=== PATIENT | male | born 1960 | race Two or more races ===

== ENCOUNTER 2020-12-26 07:29 | Outpatient (REF) | payer OTHER, SELFPAY ==
[2020-12-26 08:35] LABS: MANUAL DIFF FLAG NO
[2020-12-26 08:40] LABS: Glucose Urine UA NEG (NEG); Leukocyte Esterase Urine NEG (NEG); Nitrite Urine NEG (NEG); PH 7.5 (5.0-8.0); Urine Blood NEG (NEG); Urine Ketones NEG (NEG); Urine Protein NEG (NEG-TRACE)
[2020-12-26 08:45] LABS: Basophils Percent Auto 0.4 % (0-2); Eosinophils Absolute Auto 0.1 X10*3/uL (0.0-0.4); Eosinophils Percent Auto 1.6 % (0-4); Hematocrit 43.3 % (42-52); Hemoglobin 14.1 g/dl (14.0-18.0); Imm Gran Abs Auto 0.02 X10*3/uL (0.00-0.03); Imm Gran Pct Auto 0.4 % (0.0-0.4); Lymphocytes Absolute Auto 1.1 X10*3/uL (1.2-4.9); Lymphocytes Percent Auto 19.6 % (20-40); Mean Corpuscular HGB Conc 32.6 g/dl (31.0-36.0); Mean Corpuscular Hemoglobin 27.3 pg (27.0-33.0); Mean Corpuscular Volume 83.8 fL (80-98); Mean Platelet Volume 10.8 fL (9.4-12.4); Monocytes Absolute Auto 0.5 X10*3/uL (0.1-1.2); Monocytes Percent Auto 9.6 % (2-11); Neutrophils Absolute Auto 3.8 X10*3/uL (2.0-8.3); Neutrophils Percent Auto 68.4 % (45-73); Platelet Count 258 X10*3/uL (160-400); Red Blood Count 5.17 X10*6/uL (4.60-5.80); Red Cell Distribution Width 14.6 % (11.0-16.0); White Blood Count 5.6 X10*3/uL (4.8-10.8)
[2020-12-26 08:55] LABS: Appearance Urine CLOUDY; Color Urine YELLOW
[2020-12-26 09:14] LABS: Alanine Aminotransferase 23 U/L (0-40); Albumin Level 4.3 g/dL (3.5-5.0); Alkaline Phosphatase 51 U/L (39-117); Anion Gap 12 (12-20); Aspartate Amino Transferase 20 U/L (5-37); Bilirubin Total 0.8 mg/dL (0.0-1.0); Blood Urea Nitrogen 15 mg/dL (9-16); Calcium 8.7 mg/dL (8.4-10.2); Carbon Dioxide 26 mmol/L (22-29); Chloride 105 mmol/L (96-108); Cholesterol 288 mg/dL; Estimated Glomerular Filt Rate > 60; Glucose Random 88 mg/dL (60-115); HDL Cholesterol 76 mg/dL; LDL Cholesterol Calculated 201 mg/dl; Potassium 4.1 mmol/L (3.3-5.1); Sodium 139 mmol/L (135-145); Total Protein 7.7 g/dL (6.5-8.0); Triglycerides 55 mg/dL
[2020-12-26 09:22] LABS: Amorphous Sediment Urine 3+ /LPF; RBC Urine 0 /HPF (0); WBC Urine 0 /HPF (0-4)
[2020-12-26 09:36] LABS: Free T4 (Free Thyroxine) 0.85 ng/dL (0.71-1.85); Prostate Specific Antigen Scr 1.45 ng/mL (<0.05-4.0)
[2020-12-28 09:37] LABS: Folate 18.1 ng/mL (> or = 4.0); Vitamin B12 470 pg/mL (200-900)
[2020-12-30 03:27] LABS: Beta-2 Glycoprotein IgA <9 SAU (<=20); Beta-2 Glycoprotein IgG <9 SGU (<=20); Beta-2 Glycoprotein IgM <9 SMU (<=20)
[2020-12-31 08:27] LABS: Amitriptyline, Urine NEGATIVE ng/mL (<100); Nortriptyline, Urine NEGATIVE ng/mL (<100)
[2020-12-31 14:21] LABS: Hydroindolacetic Acid,5- 4.1
== END 2020-12-26 07:30 | disposition home or self-care (01) ==
LOC: HO.LAB 07:29
PROVIDERS: PCP Internal Medicine; Visit Provider Internal Medicine
DX: I10 Essential (primary) hypertension (principal); E78.00 Pure hypercholesterolemia, unspecified; R35.0 Frequency of micturition
CPT/HCPCS: 36415; 80053; 80061; 80335; 81001; 81050; 82607; 82746; 83497; 84153; 84439; 84443; 85025; 86146

== ENCOUNTER → 2020-12-31 14:08 | Outpatient (BNVA) | payer OTHER, SELFPAY | PROVIDERS: PCP Internal Medicine; Visit Provider Surgery ==

== ENCOUNTER 2021-01-03 08:00 | Outpatient (REF) | payer OTHER, SELFPAY ==
[2021-01-10 11:21] LABS: Hydroindolacetic Acid,5- 7.7 mg/24 h (<=6.0); Total Volume 1975 mL
== END 2021-01-03 08:01 | disposition home or self-care (01) ==
LOC: HO.LNP 08:00
PROVIDERS: Visit Provider Internal Medicine
DX: Z00.00 Encounter for general adult medical examination without abnormal findings (principal); E78.5 Hyperlipidemia, unspecified; I10 Essential (primary) hypertension; R35.0 Frequency of micturition
CPT/HCPCS: 81050; 83497

== ENCOUNTER 2021-03-25 14:33 | Outpatient (REF) | payer OTHER, SELFPAY ==
--- NOTE | ~2021-03-25 | XR_ITS ---
EXAMINATION: XR HIP, RIGHT CLINICAL INFORMATION: Pain COMPARISON: None TECHNIQUE: Two views of the right hip. FINDINGS: Bone alignment is normal. No fracture or dislocation is seen. The joint space is normal. There is faint soft tissue calcification adjacent to the greater trochanter. XR/XR hip RT min 2V IMPRESSION: Soft tissue calcification adjacent to the right greater trochanter otherwise unremarkable exam.
== END 2021-03-25 14:34 | disposition home or self-care (01) ==
LOC: HO.XRAY 14:33
PROVIDERS: PCP Internal Medicine; Visit Provider Internal Medicine
DX: M25.551 Pain in right hip (principal)
CPT/HCPCS: 73502

== ENCOUNTER 2021-03-26 07:38 | Day surgery (SDC) | payer OTHER, SELFPAY ==
[2021-03-19 14:10] VITALS: BMI 26.6
--- NOTE | 2021-03-24 11:52 | P.CONAN_ITS ---
Documented by User: Tyra Solis 03/24/21 11:53 HPI - Anesthesia Eval Consult details Narrative: 60yo M for Colonoscopy PMFSH Active Problems Active Problems: All Active Problems (Updated 03/19/21 @ 14:13 by Sarah Quinones) Frequency of micturition (Acute) Hip pain, right (Acute) Hyperlipidemia (Acute) Hypertension (Acute) Past Medical History Medical History COVID-19 vaccine series completed Hyperlipidemia Hypertension Surgical History Surgical History History of shoulder surgery Hx of colonoscopy Social History Social History Are you a primary career and technology education teacher to a significant other at home: No Do you presently have visiting nurse or other home services: No Alcohol intake: never Second Hand Smoke Exposure: No Use of substances other than those prescribed or required for medical reasons: No Have you been hit, kicked, punched, or otherwise hurt by someone within the past year? If so, by whom?: No Are you DNR?: No Advance Directives: No Advance Directives Information Provided: No Advance Directives on File: No Recently lost weight without trying: No Eating poorly because of decreased appetite: No Nutrition Risks: No Nutritional Risk Meds Allergies Allergy/AdvReac Type Severity Reaction Status Date / Time No Known Allergies Allergy Verified 03/26/21 08:04 Home Medications Medication Instructions Recorded Confirmed Last Taken Type amlodipine 1 tab PO DAILY 03/19/21 03/19/21 Unknown History Exam Exam Date and Time: March 24, 2021 1152 Height,Weight and Vital Signs: Height 5 ft 2 in Weight 66.224 kg Assessment and Plan Assessment Anesthesia Assessment: Chart Reviewed Documented by User: Tae Masterson 03/26/21 08:15 PMFSH Past Medical History Medical History COVID-19 vaccine series completed Hyperlipidemia Hypertension Surgical History Surgical History History of shoulder surgery Hx of colonoscopy Social History Social History Are you a primary career and technology education teacher to a significant other at home: No Do you presently have visiting nurse or other home services: No Alcohol intake: never Second Hand Smoke Exposure: No Use of substances other than those prescribed or required for medical reasons: No Have you been hit, kicked, punched, or otherwise hurt by someone within the past year? If so, by whom?: No Are you DNR?: No Advance Directives: No Advance Directives Information Provided: No Advance Directives on File: No Recently lost weight without trying: No Eating poorly because of decreased appetite: No Nutrition Risks: No Nutritional Risk Meds Allergies Allergy/AdvReac Type Severity Reaction Status Date / Time No Known Allergies Allergy Verified 03/26/21 08:04 Home Medications Medication Instructions Recorded Confirmed Last Taken Type amlodipine 1 tab PO DAILY 03/19/21 03/19/21 Unknown History Exam Airway Mallampati Class: III TM Dist: >3cm Neck ROM: Full
[2021-03-26 08:05] VITALS: BP 148/79; PULSE 58; RESP 16; TEMP 36.4; O2SAT 99
--- NOTE | 2021-03-26 08:24 | MHC.SHP ---
Pre-Procedural Eval Section B Chief Complaint: Screening Details of Present Illness: for screening colonoscopy, asymptomatic Relevant Family History (Specify if Yes): No Relevant Social History: None Present Medications: see Short Stay Collaborative assessment Medical History: Significant History (HTN, hip pain, hyperlipidemia) History of Previous Operations: No relevant previous surgery Allergies: Allergies Allergy/AdvReac Type Severity Reaction Status Date / Time No Known Allergies Allergy Verified 03/26/21 08:04 Review of Systems Sugical H&P ROS: Negative: Constitution, Cardiovascular, Respiratory, Neurological, Psychiatric, Hem-Onc, Allergic/Immunologic, Gastrointestinal, Genitourinary, Musculoskeletal, Integumentary, Endocrine and Eyes/Ears/Nose/Throat Exam Surgical H&P Exam: Normal: HEENT, Normal: Heart, Normal: Lungs, Normal: Extremities, Normal: Abdomen, Normal: Skin and Normal: Neurological Plan Diagnosis/Plan: Unchanged I have reviewed the history and physical and performed a pertinent physical examination on my patient. No changes have occurred unless specified.
[2021-03-26] MEDS: Lactated Ringers 1,000 ML 100 ML IVCONT (08:25)
[2021-03-26 09:10] VITALS: BP 101/61; PULSE 57; RESP 16; TEMP 36.2; O2SAT 95
--- NOTE | 2021-03-26 09:10 | P.OP_ITS ---
Operative Note Operative Note Date of Service: 03/26/21 Narrative: Preop diagnosis: Colon cancer screening Postop diagnosis: 1. Small polyp, about 5 mm, at level 10 cm 2.Internal and external hemorrhoids Procedure: Colonoscopy with polypectomy using hot snare Surgeon: Vernon Flowers MD The patient is a 60-year-old male referred for screening colonoscopy. He understood the technique of the procedure. He was aware of the risks, benefits, and alternatives. Was brought to the operating room and placed in left lateral decubitus position under monitored anesthesia care. A full digital rectal was done. A surgical time-out had been done. There were no palpable anal lesions. The tip of the Olympus colonoscope was gently inserted through the anal orifice and advanced with insufflation all way to cecum. The cecum was intubated. The cecum was cece ntified by visualization of the ileocecal valve as well as the appendiceal orifice. The cecal mucosa was unremarkable. The scope was gradually withdrawn with careful examination of the entire colonic mucosa being done with scope withdrawal. The patient had good bowel prep so it was unlikely that any lesion may have been missed. The rectum was reached. There was note of a small polyp, about 5 mm in size at level 10 cm. This was removed using hot snare. The rest of the rectum was unremarkable. There was note of internal and external hemorrhoids, prominent. There were no other lesions seen in the anal shelf. The scope was then withdrawn completely with desufflation. The patient tolerated the procedure well. No complications were noted. Depending on the path report, I would recommend that his next colonoscopy may be in the next 10 years.
--- NOTE | 2021-03-26 09:14 | PM.OP ---
Brief Operative Note Date of Service: 03/26/21 Pre-op diagnosis: Colon cancer screen Post-op diagnosis: other (Small polyp in the rectum, hemorrhoids) Procedure: Colonoscopy and polypectomy with hot snare Surgeon: Vernon Flowers MD Anesthesia: GLMA Was an Bookkeeping Service Sales Agent used for this Procedure?: No Estimated blood loss (mL): 0 Pathology: other (Polyp) Condition: stable Disposition: PACU
[2021-03-26 09:25] VITALS: PULSE 60; RESP 16; TEMP 36.2; O2SAT 98
== END 2021-03-26 10:14 ==
LOC: HO.SSS 07:38
PROVIDERS: PCP Internal Medicine; Visit Provider Surgery
PROC: 0DJD8ZZ Inspection of Lower Intestinal Tract, Via Natural or Artificial Opening Endoscopic (ICD-10-PCS; CPT 45378; principal; 2021-03-26 09:00)
DX: Z12.11 Encounter for screening for malignant neoplasm of colon (principal); D12.8 Benign neoplasm of rectum; K64.8 Other hemorrhoids; K64.4 Residual hemorrhoidal skin tags; E78.5 Hyperlipidemia, unspecified; I10 Essential (primary) hypertension; Z79.899 Other long term (current) drug therapy
CPT/HCPCS: 45385; 88305

== ENCOUNTER 2021-04-06 07:14 | Outpatient (REF) | payer OTHER, SELFPAY ==
[2021-04-06 08:49] LABS: Alanine Aminotransferase 15 U/L (0-40); Alkaline Phosphatase 57 U/L (39-117); Anion Gap 10 (12-20); Aspartate Amino Transferase 18 U/L (5-37); Bilirubin Total 0.7 mg/dL (0.0-1.0); Blood Urea Nitrogen 10 mg/dL (9-16); Calcium 8.8 mg/dL (8.4-10.2); Carbon Dioxide 27 mmol/L (22-29); Chloride 104 mmol/L (96-108); Cholesterol 260 mg/dL; Estimated Glomerular Filt Rate > 60; Glucose Random 94 mg/dL (60-115); HDL Cholesterol 66 mg/dL; LDL Cholesterol Calculated 157 mg/dl; Potassium 3.9 mmol/L (3.3-5.1); Sodium 137 mmol/L (135-145); Total Protein 7.3 g/dL (6.5-8.0); Triglycerides 189 mg/dL
== END 2021-04-06 07:15 | disposition home or self-care (01) ==
LOC: HO.LAB 07:14
PROVIDERS: PCP Internal Medicine; Visit Provider Internal Medicine
DX: E78.00 Pure hypercholesterolemia, unspecified (principal)
CPT/HCPCS: 36415; 80053; 80061

== ENCOUNTER → 2021-04-08 14:29 | Outpatient (BNVA) | payer OTHER, SELFPAY | PROVIDERS: PCP Internal Medicine; Referring Provider Internal Medicine; Visit Provider Surgery ==

== ENCOUNTER 2021-08-09 07:47 | Outpatient (REF) | payer OTHER, SELFPAY ==
[2021-08-09 08:13] LABS: MANUAL DIFF FLAG NO
[2021-08-09 08:17] LABS: Basophils Percent Auto 0.3 % (0-2); Eosinophils Absolute Auto 0.1 X10*3/uL (0.0-0.4); Eosinophils Percent Auto 2.2 % (0-4); Hematocrit 41.7 % (42-52); Hemoglobin 13.8 g/dl (14.0-18.0); Imm Gran Abs Auto 0.01 X10*3/uL (0.00-0.03); Imm Gran Pct Auto 0.2 % (0.0-0.4); Lymphocytes Absolute Auto 1.2 X10*3/uL (1.2-4.9); Lymphocytes Percent Auto 18.6 % (20-40); Mean Corpuscular HGB Conc 33.1 g/dl (31.0-36.0); Mean Corpuscular Hemoglobin 27.8 pg (27.0-33.0); Mean Corpuscular Volume 84.1 fL (80-98); Mean Platelet Volume 9.9 fL (9.4-12.4); Monocytes Absolute Auto 0.7 X10*3/uL (0.1-1.2); Monocytes Percent Auto 10.7 % (2-11); Neutrophils Absolute Auto 4.3 X10*3/uL (2.0-8.3); Platelet Count 229 X10*3/uL (160-400); Red Blood Count 4.96 X10*6/uL (4.60-5.80); Red Cell Distribution Width 13.4 % (11.0-16.0); White Blood Count 6.4 X10*3/uL (4.8-10.8)
[2021-08-09 08:46] LABS: Alanine Aminotransferase 19 U/L (0-40); Albumin Level 3.9 g/dL (3.5-5.0); Alkaline Phosphatase 58 U/L (39-117); Anion Gap 9 (12-20); Aspartate Amino Transferase 17 U/L (5-37); Bilirubin Total 0.7 mg/dL (0.0-1.0); Blood Urea Nitrogen 12 mg/dL (9-16); Calcium 8.6 mg/dL (8.4-10.2); Carbon Dioxide 29 mmol/L (22-29); Chloride 106 mmol/L (96-108); Cholesterol 197 mg/dL; Estimated Glomerular Filt Rate > 60; Glucose Random 105 mg/dL (60-115); HDL Cholesterol 61 mg/dL; LDL Cholesterol Calculated 124 mg/dl; Potassium 4.2 mmol/L (3.3-5.1); Sodium 140 mmol/L (135-145); Total Protein 7.1 g/dL (6.5-8.0); Triglycerides 60 mg/dL
== END 2021-08-09 07:48 | disposition home or self-care (01) ==
LOC: HO.LAB 07:47
PROVIDERS: PCP Internal Medicine; Visit Provider Internal Medicine
DX: E78.00 Pure hypercholesterolemia, unspecified (principal)
CPT/HCPCS: 36415; 80053; 80061; 85025

== ENCOUNTER 2022-04-11 07:22 | Outpatient (REF) | payer OTHER, SELFPAY ==
[2022-04-11 08:03] LABS: MANUAL DIFF FLAG NO
[2022-04-11 08:43] LABS: Basophils Percent Auto 0.3 % (0-2); Eosinophils Absolute Auto 0.1 X10*3/uL (0.0-0.4); Eosinophils Percent Auto 1.8 % (0-4); Hemoglobin 13.7 g/dl (14.0-18.0); Imm Gran Abs Auto 0.04 X10*3/uL (0.00-0.03); Imm Gran Pct Auto 0.6 % (0.0-0.4); Immature Retic Fraction 14.5 % (2.3-13.4); Lymphocytes Absolute Auto 1.2 X10*3/uL (1.2-4.9); Lymphocytes Percent Auto 17.9 % (20-40); Mean Corpuscular HGB Conc 32.6 g/dl (31.0-36.0); Mean Corpuscular Hemoglobin 27.8 pg (27.0-33.0); Mean Corpuscular Volume 85.4 fL (80.0-98.0); Mean Platelet Volume 10.2 fL (9.4-12.4); Monocytes Absolute Auto 0.6 X10*3/uL (0.1-1.2); Monocytes Percent Auto 8.5 % (2-11); Neutrophils Absolute Auto 4.8 x10*3/uL (2.0-8.3); Neutrophils Percent Auto 70.9 % (45-73); Platelet Count 265 X10*3/uL (160-400); Red Blood Count 4.92 X10*6/uL (4.60-5.80); Red Cell Distribution Width 14.5 % (11.0-16.0); Retic HGB Equivalent 31.4 pg (30.0-35.0); Reticulocyte Percent 1.6 % (0.5-1.8); Reticulocytes Absolute 0.077 X10*6/uL (0.026-0.095); White Blood Count 6.7 X10*3/uL (4.8-10.8)
[2022-04-11 09:03] LABS: Estimated Average Glucose 114 mg/dL; Hemoglobin A1c % 5.6 %
[2022-04-11 09:05] LABS: Alanine Aminotransferase 26 U/L (0-40); Alkaline Phosphatase 47 U/L (39-117); Anion Gap 11 (12-20); Aspartate Amino Transferase 20 U/L (5-37); Bilirubin Total 0.5 mg/dL (0.0-1.0); Blood Urea Nitrogen 12 mg/dL (9-16); Calcium 8.9 mg/dL (8.4-10.2); Carbon Dioxide 27 mmol/L (22-29); Chloride 104 mmol/L (96-108); Cholesterol 274 mg/dL; Estimated Glomerular Filt Rate > 60; Glucose Random 105 mg/dL (60-115); HDL Cholesterol 76 mg/dL; Iron 46 mcg/dL (45-160); LDL Cholesterol Calculated 180 mg/dl; Percent Iron Saturation 12 % (15-50); Potassium 4.3 mmol/L (3.3-5.1); Sodium 138 mmol/L (135-145); Total Iron Binding Capacity 393 mcg/dL (228-428); Total Protein 7.2 g/dL (6.5-8.0); Triglycerides 90 mg/dL; Unsaturated Iron Binding 347 ug/dL
[2022-04-11 09:30] LABS: Ferritin 18 ng/mL (20-250); Free T4 (Free Thyroxine) 0.85 ng/dL (0.71-1.85); Prostate Specific Antigen Scr 1.32 ng/mL (<0.05-4.0); Thyroid Stimulating Hormone 1.57 uIU/mL (0.32-4.0)
[2022-04-11 10:32] LABS: Folate 12.9 ng/mL (> or = 4.0); Vitamin B12 327 pg/mL (200-900)
== END 2022-04-11 07:23 | disposition home or self-care (01) ==
LOC: HO.LAB 07:22
PROVIDERS: PCP Internal Medicine; Visit Provider Internal Medicine
DX: Z12.5 Encounter for screening for malignant neoplasm of prostate (principal); D64.9 Anemia, unspecified; E78.00 Pure hypercholesterolemia, unspecified; R73.02 Impaired glucose tolerance (oral)
CPT/HCPCS: 36415; 80053; 80061; 82607; 82728; 82746; 83036; 83540; 84153; 84439; 84443; 85025; 85045

== ENCOUNTER 2022-04-25 14:14 | Outpatient (REF) | payer OTHER, SELFPAY ==
--- NOTE | ~2022-04-25 | US_ITS ---
EXAMINATION: US PELVIS LIMITED (BLADDER) CLINICAL INFORMATION: Frequency of micturition. COMPARISON: None TECHNIQUE: Real-time imaging of the bladder. FINDINGS: BLADDER: Well distended and normal. Bilateral ureteral jets are demonstrated. Prevoid bladder volume is 221.3 mL. Postvoid bladder volume is 117.9 mL. Prostate volume is 32.0 mL. US/US bladder IMPRESSION: No evidence of obstructive uropathy or bladder mass. Large postvoid residual.
== END 2022-04-25 14:15 | disposition home or self-care (01) ==
LOC: HO.US 14:14
PROVIDERS: PCP Internal Medicine; Visit Provider Internal Medicine
DX: R35.0 Frequency of micturition (principal)
CPT/HCPCS: 76857

== ENCOUNTER → 2023-04-21 10:00 | Outpatient (REF) | payer OTHER, SELFPAY ==
--- NOTE | 2023-04-21 10:12 | CA_ITS ---
Acquisition Time: 2023-04-21 10:25:14 Total Exercise Time: 00:09:31 Test Indications: chest pain, unspecified Medications: see med sheet Protocol: JONO Max HR: 136 BPM 86% of Pred: 158 BPM Max BP: 164/072 mmHG Max Work Load: 10.9 METS Exercise stress test with exercise 9 min 31 sec of Jono protocol, achieving 86% MPHR, with fatigue and need to stop, without chest discomfort, with isolated PACs, one atrial cuplet and one PVC, with normotensive response to exercise, without EKG changes meeting criteria for ischemia. Test reviewed with Dr Farmer. Referred By: Clif Hernandez Overread By: DIANNA GODFREY
== END ==
LOC: HO.CARD 10:00
PROVIDERS: PCP Internal Medicine; Visit Provider Internal Medicine
DX: R07.9 Chest pain, unspecified (principal)
CPT/HCPCS: 93017

== ENCOUNTER 2023-04-22 07:12 | Outpatient (REF) | payer OTHER, SELFPAY ==
[2023-04-22 07:36] LABS: MANUAL DIFF FLAG NO
[2023-04-22 07:50] LABS: Basophils Percent Auto 0.4 % (0-2); Eosinophils Absolute Auto 0.1 X10*3/uL (0.0-0.4); Eosinophils Percent Auto 1.4 % (0-4); Hematocrit 40.4 % (42.0-52.0); Hemoglobin 13.6 g/dl (14.0-18.0); Imm Gran Abs Auto 0.02 X10*3/uL (0.00-0.03); Imm Gran Pct Auto 0.4 % (0.0-0.4); Immature Retic Fraction 5.3 % (2.3-13.4); Lymphocytes Absolute Auto 1.4 X10*3/uL (1.2-4.9); Lymphocytes Percent Auto 24.3 % (20-40); Mean Corpuscular HGB Conc 33.7 g/dl (31.0-36.0); Mean Corpuscular Hemoglobin 29.1 pg (27.0-33.0); Mean Corpuscular Volume 86.5 fL (80.0-98.0); Mean Platelet Volume 9.5 fL (9.4-12.4); Monocytes Absolute Auto 0.6 X10*3/uL (0.1-1.2); Monocytes Percent Auto 10.4 % (2-11); Neutrophils Absolute Auto 3.5 x10*3/uL (2.0-8.3); Neutrophils Percent Auto 63.1 % (45-73); Platelet Count 252 X10*3/uL (160-400); Red Blood Count 4.67 X10*6/uL (4.60-5.80); Red Cell Distribution Width 13.9 % (11.0-16.0); Retic HGB Equivalent 34.2 pg (30.0-35.0); Reticulocyte Percent 0.9 % (0.5-1.8); Reticulocytes Absolute 0.041 X10*6/uL (0.026-0.095); White Blood Count 5.6 X10*3/uL (4.8-10.8)
[2023-04-22 08:07] LABS: Estimated Average Glucose 117 mg/dL; Hemoglobin A1c % 5.7 %
[2023-04-22 08:31] LABS: Alanine Aminotransferase 20 U/L (0-40); Albumin Level 3.9 g/dL (3.5-5.0); Alkaline Phosphatase 50 U/L (39-117); Anion Gap 10 (12-20); Aspartate Amino Transferase 15 U/L (5-37); Bilirubin Total 0.6 mg/dL (0.0-1.0); Blood Urea Nitrogen 17 mg/dL (9-16); Calcium 8.9 mg/dL (8.4-10.2); Carbon Dioxide 27 mmol/L (22-29); Chloride 106 mmol/L (96-108); Cholesterol 224 mg/dL; Estimated Glomerular Filt Rate > 60; Glucose Random 100 mg/dL (60-115); HDL Cholesterol 78 mg/dL; Iron 48 mcg/dL (45-160); LDL Cholesterol Calculated 136 mg/dl; Percent Iron Saturation 15 % (15-50); Potassium 4.2 mmol/L (3.3-5.1); Sodium 139 mmol/L (135-145); Total Iron Binding Capacity 315 mcg/dL (228-428); Triglycerides 54 mg/dL; Unsaturated Iron Binding 267 ug/dL
[2023-04-22 08:38] LABS: Ferritin 83 ng/mL (20-250); Free T4 (Free Thyroxine) 0.89 ng/dL (0.71-1.85); Thyroid Stimulating Hormone 1.69 uIU/mL (0.32-4.0)
[2023-04-22 08:55] LABS: Folate 14.7 ng/mL (> or = 4.0); Vitamin B12 347 pg/mL (200-900)
== END 2023-04-22 07:13 | disposition home or self-care (01) ==
LOC: HO.LAB 07:12
PROVIDERS: PCP Internal Medicine; Visit Provider Internal Medicine
DX: Z12.5 Encounter for screening for malignant neoplasm of prostate (principal); E78.00 Pure hypercholesterolemia, unspecified; R73.02 Impaired glucose tolerance (oral); D64.9 Anemia, unspecified
CPT/HCPCS: 36415; 80053; 80061; 82607; 82728; 82746; 83036; 83540; 84153; 84439; 84443; 85025; 85045

== ENCOUNTER 2023-05-22 15:38 | Outpatient (AMB) | payer OTHER, SELFPAY ==
[2023-05-22 15:41] VITALS: BP 128/76; PULSE 71; O2SAT 97; BMI 25.1
--- NOTE | 2023-05-22 15:41 | A.OFFPC_ITS ---
Vital Signs 05/22/23 15:41 Height 5 ft 2 in Weight 137 lb 2 oz BMI 25.1 BP 128/76 Blood Pressure Location Lt brachial Position Sitting Pulse 71 Pulse Source Pulse Oximeter Pulse Oximetry (%) 97 Oxygen Delivery Method Room Air Intake Visit Reasons: 2 MONTH F/U Pediatrics Teacher Required: No Accompanied by: Self / Same As Patient Allergies No Known Allergies Allergy (Verified 05/22/23 15:41) Tobacco use date assessed: 05/22/23 Dental Screening Dental Screen Date: 05/22/23 Did you have a dental visit in the last 12 months?: No Did you have a dental problem in the last 6 months where you did not have access to dental care?: No Was dental information given to patient?: Patient has dentist HPI 2 MONTH F/U HPI Details 62-year-old male with a history of hypertension anemia hypercholesterolemia impaired glucose tolerance and urinary retention comes in for follow-up. He has been seen in February 2023 having chest pains and stress test was requested and negative. patient is up-to-date with colonoscopy patient has been doing good otherwise no nausea no vomiting no chest pains no shortness of breath no bowel bladder symptoms. Discussed about the blood work he had. 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 [facility] Medical History (Updated 05/22/23 @ 16:13 by Clif Hernandez MD) Chest pain COVID-19 vaccine series completed Hyperlipidemia Hypertension Tubular adenoma of colon Surgical History History of shoulder surgery Hx of colonoscopy Family History Father Stomach cancer Maternal Grandmother Myocardial infarct Maternal Aunt Myocardial infarct Social History Housing: House Are you a primary care center manager to a significant other at home: No Do you presently have visiting nurse or other home services: No Alcohol intake: never Patient Tobacco Use Status: Never used Tobacco e-Cigarette/Vaping Use: Never Used Second Hand Smoke Exposure: No service: No Current occupational status: employed Cognitive needs: No Hearing needs: No Vision needs: Yes Questionnaire PHQ-9 Over the last 2 weeks, how often have you been bothered by any of the following problems? 1. Little interest or pleasure in doing things: not at all 2. Feeling down, depressed, or hopeless: not at all 3. Trouble falling or staying asleep, or sleeping too much: not at all 4. Feeling tired or having little energy: not at all 5. Poor appetite or overeating: not at all 6. Feeling bad about yourself - or that you are a failure or have let yourself or your family down: not at all 7. Trouble concentrating on things, such as reading the newspaper or watching television: not at all 8. Moving or speaking so slowly that other people could have noticed. Or the opposite - being so fidgety or restless that you have been moving around a lot more than usual: not at all 9. Thoughts that you would be better off or of hurting yourself in some way: not at all Total score: 0 Depression Screening Interpretation: Negative Source: Developed by Drs. Nader Dotson, Gwendolyn Varghese, Martín Campos and colleagues, with an educational purnima from [employer]. Thrive Questionnaire Date Thrive assessed: 05/22/23 I am a: Patient What is your living situation today?: I have a steady place to live Within the past 12 months, did the food you bought not last and you didn't have the money to get more?: Never true Within the past 12 months, did you worry whether your food would run out before you got money to buy more?: Never true Do you have trouble paying for medicines?: No Do you have trouble getting transportation to medical appointments?: No Do you have trouble paying your heating and electricity bill?: No Do you have trouble taking care of your child, family member or friend?: No Do you have trouble with day-to-day activities such as bathing, preparing meals, shopping, managing finances, etc.?: No Are you currently unemployed and looking for a job?: No Are you interested in more education?: No Currently or been in a relationship where the following occur: no concerns reported AUDIT C Alcohol Use Questionnaire (AUDIT-C) 1. How often do you have a drink containing alcohol?: Never 2. How many drinks containing alcohol do you have on a typical day when you are drinking?: 1 or 2 (0) 3. How often do you have six or more drinks on one occasion?: Never Total Score: 0 FRANCISCA-7 AMB Questionnaire FRANCISCA-7 Date FRANCISCA - 7 assessed: 05/22/23 Feeling nervous, anxious, or on edge: 0 = Not at all Not being able to stop or control worryin = Not at all Worrying too much about different things: 0 = Not at all Trouble relaxin = Not at all Being so restless that it is hard to sit still: 0 = Not at all Becoming easily annoyed or irritable: 0 = Not at all Feeling afraid as if something awful might happen: 0 = Not at all Total FRANCISCA-7 score (0-4 normal; 5-9 mild; 10-14 moderate; 15-21 severe): 0 Source: Developed by Drs. Nader Dotson, Gwendolyn Varghese, Martín Campos and colleagues, with an educational purnima from [employer]. Physical exam (Primary Care) Vital Signs: Last Vital Signs Pulse 71 05/22/23 15:41 BP 128/76 05/22/23 15:41 Pulse Ox 97 05/22/23 15:41 Oxygen Delivery Method Room Air 05/22/23 15:41 BMI result Body Mass Index 25.1 Tobacco/Smoking Status: Tobacco use Status Tobacco use date assessed 05/22/23 05/22/23 15:46 Patient Tobacco Use Status Never used Tobacco 05/22/23 15:46 e-Cigarette/Vaping Use Never Used 05/22/23 15:46 PHQ-9: PHQ-9 Score PHQ-9: Total score 0 05/22/23 15:46 Depression Screening Interpretation: Negative Thrive Assessment: Date of Thrive Assessment Date Thrive assessed 05/22/23 05/22/23 15:46 Currently or been in a relationship where the following occur: no concerns reported Const General: alert; No acute distress Eyes Conjunctivae: conjunctivae normal Resp Auscultation: clear to auscultation bilaterally Cardio Rate: regular rate Rhythm: regular rhythm GI Inspection: Yes normal to inspection Extrem General: Yes normal to inspection and No edema Assessment and Plan Assessment & Plan (1) Chest pain: Code(s): R07.9 - Chest pain, unspecified Plan: Stress test done negative results (2) Anemia: Code(s): D64.9 - Anemia, unspecified Plan: Chronic and stable (3) Impaired glucose tolerance: Code(s): R73.02 - Impaired glucose tolerance (oral) Plan: Decrease the amount of carbohydrate intake, pasta, bread, rice and potatoes are all sugar and that is aside from all the sweet stuff, remember that fruits are good but they are Sweet also. (4) Hypertension: Code(s): I10 - Essential (primary) hypertension Qualifiers: Hypertension type: essential hypertension Qualified Code(s): I10 - Essential (primary) hypertension Plan: Continue with blood pressure medication. Decrease salt intake and exercise patient is on amlodipine 10 mg once a day and lisinopril 20 mg once a (5) Hyperlipidemia: Code(s): E78.5 - Hyperlipidemia, unspecified Qualifiers: Hyperlipidemia type: pure hypercholesterolemia Qualified Code(s): E78.00 - Pure hypercholesterolemia, unspecified Plan: Avoid fried foods, chicken skin, eggs, butter margarine, pastries and meat. Be it pork or beef they have a lot of cholesterol LDL goal of less than 130 and triglyceride of less than 150. Patient is on atorvastatin 20 mg once a day (6) Cataract: Code(s): H26.9 - Unspecified cataract Orders: Referrals Ophthalmology Referral H26.9 - Unspecified cataract Coding Level of Care Code Est Pt Level 4 (67283) Diagnoses Chest pain R07.9 Anemia D64.9 Impaired glucose tolerance R73.02 Hypertension I10 Hypertension type: essential hypertension Hyperlipidemia E78.00 Hyperlipidemia type: pure hypercholesterolemia Cataract H26.9
== END 2023-05-22 16:17 | disposition home or self-care (01) ==
PROVIDERS: PCP Internal Medicine; Visit Provider Internal Medicine
DX: R07.9 Chest pain, unspecified (principal); D64.9 Anemia, unspecified; R73.02 Impaired glucose tolerance (oral); I10 Essential (primary) hypertension; E78.00 Pure hypercholesterolemia, unspecified; H26.9 Unspecified cataract
CPT/HCPCS: 99214

== ENCOUNTER 2024-03-28 14:56 | Outpatient (AMB) | payer OTHER, SELFPAY ==
[2024-03-28 14:57] VITALS: BP 148/80; PULSE 74; O2SAT 97; BMI 24.5
--- NOTE | 2024-03-28 14:57 | MHC.PC.OV ---
Vital Signs 03/28/24 14:57 Height 5 ft 2 in Weight 134 lb BMI 24.5 BP 148/80 H Blood Pressure Location Lt brachial Position Sitting Pulse 74 Pulse Source Pulse Oximeter Pulse Oximetry (%) 97 Oxygen Delivery Method Room Air Intake Visit Reasons: Annual Exam Intake Note: Patient is here today for a physical. 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 Allergies No Known Allergies Allergy (Verified 03/28/24 14:58) Medication List - Last Reconciled 03/28/24 by Clif Hernandez MD amlodipine 10 mg PO DAILY 90 days atorvastatin 20 mg PO DAILY 90 days lisinopril 20 mg PO DAILY 90 days tamsulosin 0.4 mg PO BEDTIME 30 days Tobacco use date assessed: 03/28/24 Dental Screening Dental Screen Date: 03/28/24 Did you have a dental visit in the last 12 months?: No Did you have a dental problem in the last 6 months where you did not have access to dental care?: No Was dental information given to patient?: Patient has dentist HPI Annual Exam HPI Details 63-year-old male with impaired glucose tolerance hypertension hypercholesterolemia coming in for physical exam last seen in 05/18/2023 patient is up-to-date with colon janelle [id number] [facility] Medical History (Updated 03/28/24 @ 15:24 by Clif Hernandez MD) Frequency of micturition Frequency of micturition Finger laceration Chest pain Visit for suture removal Tubular adenoma of colon COVID-19 vaccine series completed Hyperlipidemia Hypertension Surgical History Hx of colonoscopy History of shoulder surgery Family History Father Stomach cancer Maternal Grandmother Myocardial infarct Maternal Aunt Myocardial infarct Social History (Updated 03/28/24 @ 15:29 by Clif Hernandez MD) Housing: House Are you a primary out of school hours care worker to a significant other at home: No Do you presently have visiting nurse or other home services: No Alcohol intake: current Comment: 2 days/ week 2 drinks one time Patient Tobacco Use Status: Never used Tobacco e-Cigarette/Vaping Use: Never Used Second Hand Smoke Exposure: No service: No Current occupational status: employed Cognitive needs: No Hearing needs: No Vision needs: Yes Questionnaire PHQ-9 Over the last 2 weeks, how often have you been bothered by any of the following problems? 1. Little interest or pleasure in doing things: not at all 2. Feeling down, depressed, or hopeless: not at all 3. Trouble falling or staying asleep, or sleeping too much: not at all 4. Feeling tired or having little energy: not at all 5. Poor appetite or overeating: not at all 6. Feeling bad about yourself - or that you are a failure or have let yourself or your family down: not at all 7. Trouble concentrating on things, such as reading the newspaper or watching television: not at all 8. Moving or speaking so slowly that other people could have noticed. Or the opposite - being so fidgety or restless that you have been moving around a lot more than usual: not at all 9. Thoughts that you would be better off or of hurting yourself in some way: not at all Total score: 0 Depression Screening Interpretation: Negative Depression Screening Done: Yes Source: Developed by Drs. Nader Dotson, Gwendolyn Varghese, Martín Campos and colleagues, with an educational purnima from [employer]. Thrive Questionnaire Date Thrive assessed: 03/28/24 I am a: Patient What is your living situation today?: I have a steady place to live Within the past 12 months, did the food you bought not last and you didn't have the money to get more?: Never true Within the past 12 months, did you worry whether your food would run out before you got money to buy more?: Never true Do you have trouble paying for medicines?: No Do you have trouble getting transportation to medical appointments?: No Do you have trouble paying your heating and electricity bill?: No Do you have trouble taking care of your child, family member or friend?: No Do you have trouble with day-to-day activities such as bathing, preparing meals, shopping, managing finances, etc.?: No Are you currently unemployed and looking for a job?: No Are you interested in more education?: No Please select the resources that you would like help with: None Currently or been in a relationship where the following occur: no concerns reported THRIVE Score: 0 AUDIT C Alcohol Use Questionnaire (AUDIT-C) 1. How often do you have a drink containing alcohol?: Never 2. How many drinks containing alcohol do you have on a typical day when you are drinking?: 1 or 2 (0) 3. How often do you have six or more drinks on one occasion?: Never Total Score: 0 FRANCISCA-7 AMB Questionnaire FRANCISCA-7 Date FRANCISCA - 7 assessed: 03/28/24 Feeling nervous, anxious, or on edge: 0 = Not at all Not being able to stop or control worryin = Not at all Worrying too much about different things: 0 = Not at all Trouble relaxin = Not at all Being so restless that it is hard to sit still: 0 = Not at all Becoming easily annoyed or irritable: 0 = Not at all Feeling afraid as if something awful might happen: 0 = Not at all Total FRANCISCA-7 score (0-4 normal; 5-9 mild; 10-14 moderate; 15-21 severe): 0 Source: Developed by Drs. Nader Dotson, Gwendolyn Varghese, Martín Campos and colleagues, with an educational purnima from [employer]. FRANCISCA-7 Assessment Billing FRANCISCA-7 Assessment Tool: FRANCISCA-7 Assessment 05465 Review of Systems Const Denies poor appetite and Denies weakness Eyes Denies no additional complaints ENT Reports Normal hearing present, Denies dizziness, Denies nasal congestion, Denies tinnitus and Denies sore throat Card Denies chest pain, Denies syncope, Denies rapid heart rate and Denies dyspnea Resp Denies cough and Denies dyspnea GI Denies change in stool character, Reports constipation, Denies diarrhea, Denies nausea and Denies vomiting Denies dysuria and Denies urinary frequency Neuro Reports Normal hearing present, Denies confusion, Denies dizziness, Denies syncope and Denies weakness Psych Denies confusion Physical exam (Primary Care) Vital Signs: Last Vital Signs Pulse 74 03/28/24 14:57 BP 148/80 H 03/28/24 14:57 Pulse Ox 97 03/28/24 14:57 Oxygen Delivery Method Room Air 03/28/24 14:57 BMI result Body Mass Index 24.5 Tobacco/Smoking Status: Tobacco use Status Tobacco use date assessed 03/28/24 03/28/24 15:00 Patient Tobacco Use Status Never used Tobacco 03/28/24 15:00 e-Cigarette/Vaping Use Never Used 03/28/24 15:00 PHQ-9: PHQ-9 Score PHQ-9: Total score 0 03/28/24 15:08 Depression Screening Interpretation: Negative Thrive Assessment: Date of Thrive Assessment Date Thrive assessed 03/28/24 03/28/24 15:00 Currently or been in a relationship where the following occur: no concerns reported Const General: No confusion Orientation/consciousness: No confusion HENMT Head: Yes normocephalic Ears: external ears normal and TM's normal bilaterally Face and sinus: Yes normal facial exam Mouth: moist mucous membranes Throat: Yes tonsils normal Eyes Conjunctivae: conjunctivae normal Pupils: Equal, round and reactive pupils present and Pupil accommodation reflex normal Direct Ophthalmoscopy: normal light reflex Neck Neck: No lymphadenopathy Thyroid: Thyroid normal Chest Chest palpation & inspection: normal inspection of the chest Resp Effort & Inspection: normal respiratory effort and no audible wheezes Auscultation: clear to auscultation bilaterally, no crackles, no wheezes and lung sounds not diminished Cardio Rate: regular rate Rhythm: regular rhythm Peripheral pulses: radial pulses present and dorsalis pedis present GI Other: decline rectal Palpation (GI): no masses Auscultation: normal bowel sounds and normoactive bowel sounds Rectal Exam - Male: Yes deferred Male General Exam: Yes normal external exam Skin General skin exam: no rashes or lesions noted Rashes: no rashes Neuro General: No confusion Cranial nerves: Yes Equal, round and reactive pupils present and Yes Normal hearing present Cognition (Neuro): normal cognition Gait exam (Neuro): Normal gait present Motor exam (neuro): 5/5 motor strength present throughout Deep tendon reflexes (DTR's): Right brachioradialis reflex intensity grade: 2+, Left brachioradialis reflex intensity grade: 2+, Right patellar reflex intensity grade: 2+ and Left patellar reflex intensity grade: 2+ Extrem General: No edema Assessment and Plan Assessment & Plan (1) Annual physical exam: Code(s): Z00.00 - Encounter for general adult medical examination without abnormal findings (2) Cataract: Code(s): H26.9 - Unspecified cataract Plan: Patient was seen by Optometry and was 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 (3) Anemia: Code(s): D64.9 - Anemia, unspecified Plan: Advised to get repeat testing of blood work (4) Hypertension: Code(s): I10 - Essential (primary) hypertension Qualifiers: Hypertension type: essential hypertension Qualified Code(s): I10 - Essential (primary) hypertension Plan: Continue with blood pressure medication. Decrease salt intake and exercise on amlodipine 10 mg once a day and lisinopril 20 mg once a day. increase lisinopril to 40 mg (5) Hyperlipidemia: Code(s): E78.5 - Hyperlipidemia, unspecified Qualifiers: Hyperlipidemia type: pure hypercholesterolemia Qualified Code(s): E78.00 - Pure hypercholesterolemia, unspecified Plan: Avoid fried foods, chicken skin, eggs, butter margarine, pastries and meat. Be it pork or beef they have a lot of cholesterol on atorvastatin 20 mg once a day advised to get blood work (6) Urinary retention: Code(s): R33.9 - Retention of urine, unspecified Plan: added finasteride with tamsulosin, if urination will still be a problem- will refer to urology Orders: Orders Free T4 (Free Thyroxine) Today E78.00 - Pure hypercholesterolemia, unspecified Thyroid Stimulating Hormone Today E78.00 - Pure hypercholesterolemia, unspecified Lipid Panel Today E78.00 - Pure hypercholesterolemia, unspecified Complete Blood Count Auto Diff Today E78.00 - Pure hypercholesterolemia, unspecified Comprehensive Met. Panel Today E78.00 - Pure hypercholesterolemia, unspecified Vitamin B12 and Folate Today E78.00 - Pure hypercholesterolemia, unspecified Prostate Specific Antigen Scr Today E78.00 - Pure hypercholesterolemia, unspecified Hemoglobin A1c Today R73.02 - Impaired glucose tolerance (oral) Ferritin Today D64.9 - Anemia, unspecified IRON PROFILE Today D64.9 - Anemia, unspecified Reticulocyte Count Today D64.9 - Anemia, unspecified Medications: New finasteride 5 mg PO DAILY 30 tabs 3RF R33.9 - Retention of urine, unspecified Changed From lisinopril 20 mg PO DAILY 90 days 90 tabs 3RF I10 - Essential (primary) hypertension To lisinopril 40 mg PO DAILY 90 days 90 tabs 3RF I10 - Essential (primary) hypertension Coding Level of Care Code Est Pt Prev Care 40-64y(76004) Diagnoses Annual physical exam Z00.00 Cataract H26.9 Anemia D64.9 Essential hypertension I10 Hypertension type: essential hypertension Pure hypercholesterolemia E78.00 Hyperlipidemia type: pure hypercholesterolemia Urinary retention R33.9 Additional Codes FRANCISCA-7 Assessment Billing - FRANCISCA-7 Assessment Tool: FRANCISCA-7 Assessment [id number] ([id number])
== END 2024-03-28 15:52 | disposition home or self-care (01) ==
PROVIDERS: PCP Internal Medicine; Visit Provider Internal Medicine
DX: Z00.00 Encounter for general adult medical examination without abnormal findings (principal); H26.9 Unspecified cataract; D64.9 Anemia, unspecified; I10 Essential (primary) hypertension; E78.00 Pure hypercholesterolemia, unspecified; R33.9 Retention of urine, unspecified
CPT/HCPCS: 99396

== ENCOUNTER 2024-08-03 07:16 | Outpatient (REF) | payer OTHER, SELFPAY ==
[2024-08-03 07:26] LABS: MANUAL DIFF FLAG NO
[2024-08-03 07:41] LABS: Basophils Percent Auto 0.2 % (0-2); Eosinophils Absolute Auto 0.1 X10*3/uL (0.0-0.4); Eosinophils Percent Auto 2.2 % (0-4); Hematocrit 45.1 % (42.0-52.0); Hemoglobin 15.1 g/dl (14.0-18.0); Imm Gran Abs Auto 0.02 X10*3/uL (0.00-0.03); Imm Gran Pct Auto 0.4 % (0.0-0.4); Immature Retic Fraction 8.1 % (2.3-13.4); Lymphocytes Absolute Auto 1.3 X10*3/uL (1.2-4.9); Lymphocytes Percent Auto 26.1 % (20-40); Mean Corpuscular HGB Conc 33.5 g/dl (31.0-36.0); Mean Corpuscular Hemoglobin 28.8 pg (27.0-33.0); Mean Corpuscular Volume 85.9 fL (80.0-98.0); Mean Platelet Volume 9.6 fL (9.4-12.4); Monocytes Absolute Auto 0.5 X10*3/uL (0.1-1.2); Monocytes Percent Auto 9.3 % (2-11); Neutrophils Absolute Auto 3.1 x10*3/uL (2.0-8.3); Neutrophils Percent Auto 61.8 % (45-73); Platelet Count 318 X10*3/uL (160-400); Red Blood Count 5.25 X10*6/uL (4.60-5.80); Red Cell Distribution Width 13.5 % (11.0-16.0); Retic HGB Equivalent 32.9 pg (30.0-35.0); Reticulocyte Percent 1.1 % (0.5-1.8); Reticulocytes Absolute 0.056 X10*6/uL (0.026-0.095); White Blood Count 5.1 X10*3/uL (4.8-10.8)
[2024-08-03 08:06] LABS: Estimated Average Glucose 117 mg/dL; Hemoglobin A1C 150.8703 umol/L; Hemoglobin A1c % 5.7 % (<6.0); Total Hemoglobin (HGBA1C) 3927.2619 umol/L
[2024-08-03 08:08] LABS: Alanine Aminotransferase 19 U/L (0-40); Albumin Level 4.2 g/dL (3.5-5.0); Alkaline Phosphatase 56 U/L (39-117); Anion Gap 12 (12-20); Aspartate Amino Transferase 20 U/L (5-37); Bilirubin Total 0.7 mg/dL (0.0-1.0); Blood Urea Nitrogen 14 mg/dL (9-16); Calcium 9.3 mg/dL (8.4-10.2); Carbon Dioxide 27 mmol/L (22-29); Chloride 104 mmol/L (96-108); Cholesterol 288 mg/dL (<200); Estimated Glomerular Filt Rate > 60; Glucose Random 102 mg/dL (60-115); HDL Cholesterol 102 mg/dL (>40); Iron 63 mcg/dL (45-160); LDL Cholesterol Calculated 171 mg/dL (<100); Percent Iron Saturation 20 % (15-50); Potassium 4.2 mmol/L (3.3-5.1); Sodium 139 mmol/L (135-145); Total Iron Binding Capacity 322 mcg/dL (228-428); Total Protein 7.9 g/dL (6.5-8.0); Triglycerides 76 mg/dL (<150); Unsaturated Iron Binding 259 ug/dL
[2024-08-03 08:29] LABS: Ferritin 73 ng/mL (20-250); Free T4 (Free Thyroxine) 0.87 ng/dL (0.71-1.85); Thyroid Stimulating Hormone 1.12 uIU/mL (0.32-4.0)
[2024-08-03 08:35] LABS: Folate 8.4 ng/mL (> or = 4.0); Prostate Specific Antigen Scr 0.83 ng/mL (<0.05-4.0); Vitamin B12 374 pg/mL (200-900)
== END 2024-08-03 07:17 | disposition home or self-care (01) ==
LOC: HO.LAB 07:16
PROVIDERS: PCP Internal Medicine; Visit Provider Internal Medicine
DX: E78.00 Pure hypercholesterolemia, unspecified (principal); D64.9 Anemia, unspecified; R73.02 Impaired glucose tolerance (oral); Z12.5 Encounter for screening for malignant neoplasm of prostate
CPT/HCPCS: 36415; 80053; 80061; 82607; 82728; 82746; 83036; 83540; 84153; 84439; 84443; 85025; 85045

== ENCOUNTER 2024-08-09 15:00 | Outpatient (AMB) | payer OTHER, SELFPAY ==
--- NOTE | 2024-08-09 15:01 | A.OFFPC_ITS ---
Vital Signs 08/09/24 15:02 Height 5 ft 2 in Weight 130 lb 8 oz BMI 23.9 BP 120/66 Blood Pressure Location Lt brachial Position Sitting Pulse 57 Pulse Source Pulse Oximeter Pulse Oximetry (%) 94 Oxygen Delivery Method Room Air Intake Visit Reasons: HTN, urinary retention Intake Note: Patient is here to follow up on HTN, Urinary retension. 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 Patient's last colonoscopy was 2020. [facility] Medical History (Updated 03/28/24 @ 15:24 by Clif Hernandez MD) Frequency of micturition Frequency of micturition Finger laceration Chest pain Visit for suture removal Tubular adenoma of colon COVID-19 vaccine series completed Hyperlipidemia Hypertension Surgical History Hx of colonoscopy History of shoulder surgery Family History Father Stomach cancer Maternal Grandmother Myocardial infarct Maternal Aunt Myocardial infarct Social History Housing: House Are you a primary intensive care medicine specialist to a significant other at home: No Do you presently have visiting nurse or other home services: No Alcohol intake: current Comment: 2 days/ week 2 drinks one time Patient Tobacco Use Status: Never used Tobacco e-Cigarette/Vaping Use: Never Used Second Hand Smoke Exposure: No service: No Current occupational status: employed Cognitive needs: No Hearing needs: No Vision needs: Yes Questionnaire Thrive Questionnaire Date Thrive assessed: 03/28/24 Are you currently unemployed and looking for a job?: No FRANCISCA-7 AMB Questionnaire FRANCISCA-7 Date FRANCISCA - 7 assessed: 03/28/24 Source: Developed by Drs. Nader Dotson, Gwendolyn Varghese, Martín Campos and colleagues, with an educational purnima from [employer]. Physical exam (Primary Care) Vital Signs: Last Vital Signs Pulse 57 08/09/24 15:02 BP 120/66 08/09/24 15:02 Pulse Ox 94 08/09/24 15:02 Oxygen Delivery Method Room Air 08/09/24 15:02 BMI result Body Mass Index 23.9 Tobacco/Smoking Status: Tobacco use Status Tobacco use date assessed 08/09/24 08/09/24 15:06 Patient Tobacco Use Status Never used Tobacco 08/09/24 15:06 e-Cigarette/Vaping Use Never Used 08/09/24 15:06 Thrive Assessment: Date of Thrive Assessment Date Thrive assessed 03/28/24 08/09/24 15:06 Const General: alert; No acute distress Eyes Conjunctivae: conjunctivae normal Resp Auscultation: clear to auscultation bilaterally Cardio Rate: regular rate Rhythm: regular rhythm GI Inspection: Yes normal to inspection Extrem General: Yes normal to inspection and No edema Coding Level of Care Code Est Pt Level 4 (16019) Diagnoses Urinary retention R33.9 Impaired glucose tolerance R73.02 Pure hypercholesterolemia E78.00 Hyperlipidemia type: pure hypercholesterolemia Essential hypertension I10 Hypertension type: essential hypertension Assessment & Plan Assessment & Plan (1) Urinary retention: Code(s): R33.9 - Retention of urine, unspecified Category: Medical Plan: Discussion about urinary retention problem. Declined seeing Urology and has been taking the medication which helps. Discussed concerns that we can do another ultrasound to see if he is emptying his bladder but would rather hold off. (2) Impaired glucose tolerance: Code(s): R73.02 - Impaired glucose tolerance (oral) Category: Medical Plan: Decrease the amount of carbohydrate intake, pasta, bread, rice and potatoes are all sugar and that is aside from all the sweet stuff, remember that fruits are good but they are Sweet also. (3) Hyperlipidemia: Code(s): E78.5 - Hyperlipidemia, unspecified Category: Medical Qualifiers: Hyperlipidemia type: pure hypercholesterolemia Qualified Code(s): E78.00 - Pure hypercholesterolemia, unspecified Plan: Avoid fried foods, chicken skin, eggs, butter margarine, pastries and meat. Be it pork or beef they have a lot of cholesterol l LDL goal of less than 130 and triglyceride of less than 150 patient is on atorvastatin 20 mg once a day. Discussed my concerns with regards to the cholesterol as the LDL now is much higher than before. Patient is admitting indiscriminate eating. (4) Hypertension: Code(s): I10 - Essential (primary) hypertension Category: Medical Qualifiers: Hypertension type: essential hypertension Qualified Code(s): I10 - Essential (primary) hypertension Plan: Continue with blood pressure medication. Decrease salt intake and exercise on lisinopril and amlodipine Orders: Orders Comprehensive Met. Panel 6 Months E78.00 - Pure hypercholesterolemia, unspecified Hemoglobin A1c 6 Months R73.02 - Impaired glucose tolerance (oral) Lipid Panel 6 Months E78.00 - Pure hypercholesterolemia, unspecified Medications: Changed From tamsulosin 0.4 mg PO BEDTIME 30 days 30 caps 4RF R33.9 - Retention of urine, unspecified To tamsulosin 0.4 mg PO BEDTIME 90 days 90 caps 1RF R33.9 - Retention of urine, unspecified Refilled amlodipine 10 mg PO DAILY 90 days 90 tabs 2RF I10 - Essential (primary) hypertension atorvastatin 20 mg PO DAILY 90 days 90 tabs 3RF E78.00 - Pure hypercholesterolemia, unspecified finasteride 5 mg PO DAILY 90 tabs 2RF R33.9 - Retention of urine, unspecified lisinopril 40 mg PO DAILY 90 days 90 tabs 3RF I10 - Essential (primary) hypertension
[2024-08-09 15:02] VITALS: BP 120/66; PULSE 57; O2SAT 94; BMI 23.9
== END 2024-08-09 15:57 | disposition home or self-care (01) ==
PROVIDERS: PCP Internal Medicine; Visit Provider Internal Medicine
DX: R33.9 Retention of urine, unspecified (principal); R73.02 Impaired glucose tolerance (oral); E78.00 Pure hypercholesterolemia, unspecified; I10 Essential (primary) hypertension

== ENCOUNTER → 2024-08-09 15:00 | Outpatient (BNVA) | payer OTHER, SELFPAY | PROVIDERS: PCP Internal Medicine; Visit Provider Internal Medicine ==

== ENCOUNTER 2025-03-29 08:58 | Outpatient (REF) | payer OTHER, SELFPAY ==
[2025-03-29 09:51] LABS: Estimated Average Glucose 114 mg/dL; Hemoglobin A1c % 5.6 % (<6.0)
[2025-03-29 10:03] LABS: Alanine Aminotransferase 23 U/L (0-40); Albumin Level 4.4 g/dL (3.5-5.0); Alkaline Phosphatase 50 U/L (39-117); Anion Gap 13 (12-20); Aspartate Amino Transferase 24 U/L (5-37); Bilirubin Total 0.8 mg/dL (0.0-1.0); Blood Urea Nitrogen 13 mg/dL (9-16); Calcium 9.3 mg/dL (8.4-10.2); Carbon Dioxide 26 mmol/L (22-29); Chloride 105 mmol/L (96-108); Cholesterol 332 mg/dL (<200); Estimated Glomerular Filt Rate > 60; Glucose Random 95 mg/dL (60-115); HDL Cholesterol 96 mg/dL (>40); LDL Cholesterol Calculated 219 mg/dL (<100); Potassium 3.7 mmol/L (3.3-5.1); Sodium 140 mmol/L (135-145); Total Protein 7.8 g/dL (6.5-8.0); Triglycerides 85 mg/dL (<150)
== END 2025-03-29 08:59 | disposition home or self-care (01) ==
LOC: HO.LAB 08:58
PROVIDERS: PCP Internal Medicine; Visit Provider Internal Medicine
DX: E78.00 Pure hypercholesterolemia, unspecified (principal); R73.02 Impaired glucose tolerance (oral)
CPT/HCPCS: 36415; 80053; 80061; 83036

== ENCOUNTER 2025-04-01 14:42 | Outpatient (AMB) | payer OTHER, SELFPAY ==
[2025-04-01 14:46] VITALS: BP 160/80; PULSE 87; O2SAT 98; BMI 25.1
--- NOTE | 2025-04-01 14:46 | MHC.PC.OV ---
Vital Signs 04/01/25 14:46 Height 5 ft 2 in Weight 137 lb 2 oz BMI 25.1 BP 160/80 H Blood Pressure Location Lt brachial Position Sitting Pulse 87 Pulse Source Pulse Oximeter Pulse Oximetry (%) 98 Oxygen Delivery Method Room Air Intake Visit Reasons: Annual Exam Child Welfare Director Required: No Accompanied by: Self / Same As Patient Allergies No Known Allergies Allergy (Verified 04/01/25 14:47) Medication List - Last Reconciled 04/01/25 by Clif Hernandez MD amlodipine 10 mg PO DAILY 90 days atorvastatin 20 mg PO DAILY 90 days finasteride 5 mg PO DAILY lisinopril 40 mg PO DAILY 90 days tamsulosin 0.4 mg PO BEDTIME 90 days Tobacco use date assessed: 04/01/25 Fall risk assessment: No Falls in past year Last assessed Fall Risk: 04/01/25 Dental Screening Dental Screen Date: 04/01/25 Did you have a dental visit in the last 12 months?: No Did you have a dental problem in the last 6 months where you did not have access to dental care?: No Was dental information given to patient?: No HPI Annual Exam HPI Details stopped med due to not receiving PFSH Medical History (Updated 04/01/25 @ 15:24 by Clif Hernandez MD) Frequency of micturition Frequency of micturition Finger laceration Chest pain Visit for suture removal Tubular adenoma of colon COVID-19 vaccine series completed Hyperlipidemia Hypertension Surgical History Hx of colonoscopy History of shoulder surgery Family History (Updated 04/01/25 @ 15:13 by Clif Hernandez MD) Father Stomach cancer Maternal Grandmother Myocardial infarct Maternal Aunt Myocardial infarct Brother Stomach cancer Social History (Updated 04/01/25 @ 15:14 by Clif Hernandez MD) Housing: House Are you a primary healthcare educator to a significant other at home: No Do you presently have visiting nurse or other home services: No Alcohol intake: current Comment: 2 days/ week 4 drinks one time, Patient Tobacco Use Status: Never used Tobacco e-Cigarette/Vaping Use: Never Used Second Hand Smoke Exposure: No service: No Current occupational status: employed Cognitive needs: No Hearing needs: No Vision needs: Yes Questionnaire PHQ-9 Over the last 2 weeks, how often have you been bothered by any of the following problems? 1. Little interest or pleasure in doing things: not at all 2. Feeling down, depressed, or hopeless: not at all 3. Trouble falling or staying asleep, or sleeping too much: not at all 4. Feeling tired or having little energy: not at all 5. Poor appetite or overeating: not at all 6. Feeling bad about yourself - or that you are a failure or have let yourself or your family down: not at all 7. Trouble concentrating on things, such as reading the newspaper or watching television: not at all 8. Moving or speaking so slowly that other people could have noticed. Or the opposite - being so fidgety or restless that you have been moving around a lot more than usual: not at all 9. Thoughts that you would be better off or of hurting yourself in some way: not at all Total score: 0 Depression Screening Interpretation: Negative Depression Screening Done: Yes Source: Developed by Drs. Nader Dotson, Gwendolyn Varghese, Martín Campos and colleagues, with an educational purnima from [employer]. Thrive Questionnaire Date Thrive assessed: 04/01/25 I am a: Patient What is your living situation today?: I have a steady place to live Within the past 12 months, did the food you bought not last and you didn't have the money to get more?: Never true Within the past 12 months, did you worry whether your food would run out before you got money to buy more?: Never true Do you have trouble paying for medicines?: No Do you have trouble getting transportation to medical appointments?: No Do you have trouble paying your heating and electricity bill?: No Do you have trouble taking care of your child, family member or friend?: No Do you have trouble with day-to-day activities such as bathing, preparing meals, shopping, managing finances, etc.?: No Are you currently unemployed and looking for a job?: No Are you interested in more education?: No Please select the resources that you would like help with: None Currently or been in a relationship where the following occur: No concerns reported THRIVE Score: 0 AUDIT C Alcohol Use Questionnaire (AUDIT-C) 1. How often do you have a drink containing alcohol?: Never 3. How often do you have six or more drinks on one occasion?: Never Total Score: 0 FRANCISCA-7 AMB Questionnaire FRANCISCA-7 Date FRANCISCA - 7 assessed: 04/01/25 Feeling nervous, anxious, or on edge: 0 = Not at all Not being able to stop or control worryin = Not at all Worrying too much about different things: 0 = Not at all Trouble relaxin = Not at all Being so restless that it is hard to sit still: 0 = Not at all Becoming easily annoyed or irritable: 0 = Not at all Feeling afraid as if something awful might happen: 0 = Not at all Total FRANCISCA-7 score (0-4 normal; 5-9 mild; 10-14 moderate; 15-21 severe): 0 Source: Developed by Drs. Nader oDtson, Gwendolyn Varghese, Martín Campos and colleagues, with an educational purnima from [employer]. Review of Systems Const Denies poor appetite and Denies weakness Eyes Denies no additional complaints ENT Reports Normal hearing present, Denies dizziness, Denies nasal congestion, Denies tinnitus and Denies sore throat Card Denies chest pain, Denies syncope, Denies rapid heart rate and Denies dyspnea Resp Denies cough and Denies dyspnea GI Denies change in stool character, Reports constipation, Denies diarrhea, Denies nausea and Denies vomiting Denies dysuria and Denies urinary frequency Neuro Reports Normal hearing present, Denies confusion, Denies dizziness, Denies syncope and Denies weakness Psych Denies confusion Physical exam (Primary Care) Vital Signs: Last Vital Signs Pulse 87 04/01/25 14:46 BP 160/80 H 04/01/25 14:46 Pulse Ox 98 04/01/25 14:46 Oxygen Delivery Method Room Air 04/01/25 14:46 BMI result Body Mass Index 25.1 Tobacco/Smoking Status: Tobacco use Status Tobacco use date assessed 04/01/25 04/01/25 14:48 Patient Tobacco Use Status Never used Tobacco 04/01/25 15:14 e-Cigarette/Vaping Use Never Used 04/01/25 15:14 PHQ-9: PHQ-9 Score PHQ-9: Total score 0 04/01/25 15:10 Depression Screening Interpretation: Negative Thrive Assessment: Date of Thrive Assessment Date Thrive assessed 04/01/25 04/01/25 14:48 Currently or been in a relationship where the following occur: No concerns reported Const General: No confusion Orientation/consciousness: No confusion HENMT Head: Yes normocephalic Ears: external ears normal and TM's normal bilaterally Face and sinus: Yes normal facial exam Mouth: moist mucous membranes Throat: Yes tonsils normal Eyes Conjunctivae: conjunctivae normal Pupils: Equal, round and reactive pupils present and Pupil accommodation reflex normal Direct Ophthalmoscopy: normal light reflex Neck Neck: No lymphadenopathy Thyroid: Thyroid normal Chest Chest palpation & inspection: normal inspection of the chest Resp Effort & Inspection: normal respiratory effort and no audible wheezes Auscultation: clear to auscultation bilaterally, no crackles, no wheezes and lung sounds not diminished Cardio Rate: regular rate Rhythm: regular rhythm Peripheral pulses: radial pulses present and dorsalis pedis present GI Other: guaiac negative prostate enlarged Palpation (GI): no masses Auscultation: normal bowel sounds and normoactive bowel sounds Rectal Exam - Male: Yes deferred Skin General skin exam: no rashes or lesions noted Rashes: no rashes Neuro General: No confusion Cranial nerves: Yes Equal, round and reactive pupils present and Yes Normal hearing present Cognition (Neuro): normal cognition Gait exam (Neuro): Normal gait present Motor exam (neuro): 5/5 motor strength present throughout Deep tendon reflexes (DTR's): Right brachioradialis reflex intensity grade: 2+, Left brachioradialis reflex intensity grade: 2+, Right patellar reflex intensity grade: 2+ and Left patellar reflex intensity grade: 2+ Extrem General: No edema Coding Level of Care Code New Pt Prev Care 40-64y(10401) Diagnoses Annual physical exam Z00.00 Impaired glucose tolerance R73.02 Essential hypertension I10 Hypertension type: essential hypertension Pure hypercholesterolemia E78.00 Hyperlipidemia type: pure hypercholesterolemia Urinary retention R33.9 Vision changes H53.9 Assessment & Plan Assessment & Plan (1) Annual physical exam: Code(s): Z00.00 - Encounter for general adult medical examination without abnormal findings Category: Medical Plan: Patient is advised to eat healthy, keep well hydrated, keep active and have adequate sleep. (2) Impaired glucose tolerance: Code(s): R73.02 - Impaired glucose tolerance (oral) Category: Medical Plan: Decrease the amount of carbohydrate intake, pasta, bread, rice and potatoes are all sugar and that is aside from all the sweet stuff, remember that fruits are good but they are Sweet also. (3) Hypertension: Code(s): I10 - Essential (primary) hypertension Category: Medical Qualifiers: Hypertension type: essential hypertension Qualified Code(s): I10 - Essential (primary) hypertension Plan: Continue with blood pressure medication. Decrease salt intake and exercise patient is on amlodipine 10 mg once a day lisinopril 40 mg once a day (4) Hyperlipidemia: Code(s): E78.5 - Hyperlipidemia, unspecified Category: Medical Qualifiers: Hyperlipidemia type: pure hypercholesterolemia Qualified Code(s): E78.00 - Pure hypercholesterolemia, unspecified Plan: Avoid fried foods, chicken skin, eggs, butter margarine, pastries and meat. Be it pork or beef they have a lot of cholesterol LDL goal of less than 130 and triglyceride of less than 150 patient on atorvastatin 20 (5) Urinary retention: Code(s): R33.9 - Retention of urine, unspecified Category: Medical Plan: Patient has been placed on finasteride and tamsulosin (6) Vision changes: Code(s): H53.9 - Unspecified visual disturbance Category: Medical Plan History of Present Illness The patient is a 64-year-old male presenting with a management need for his hypertension, hypercholesterolemia, and diabetes. He has known essential hypertension controlled with amlodipine and lisinopril, which was reportedly inadequately managed with his home measurements. The patient recently stopped atorvastatin due to a lapse in refill, leading to a significant rise in his cholesterol levels, with recent lab results showing high total and LDL cholesterol. He has a history of impaired glucose tolerance but reports that his blood sugar levels have improved recently. The patient also mentions managing benign prostatic hyperplasia with finasteride and tamsulosin. He emphasizes concern over family history, discussing a past of stomach cancer in his father and heart attacks in a few relatives. Social habits include alcohol consumption without tobacco use; notably, he consumes about four alcoholic drinks over weekends. He offers no recent procedures other than a planned repeat colonoscopy, with his last one in February 2021 showing a tubular adenoma. Health Maintenance - Reviewed recent blood work including cholesterol levels showing total cholesterol at 332 mg/dL and LDL cholesterol at 209 mg/dL. - Discussed family history of stomach cancer and heart conditions for awareness. - Advised repeat colonoscopy for tubular adenoma surveillance planned for next year. - Reviewed vaccination status, ensuring a past shingles vaccination, and confirmed tetanus is up to date. - Discussed risks of alcohol use on liver health, highlighting four drinks on weekends. Social History - Consumes alcohol on weekends, approximately four drinks per sitting. - Denies tobacco use. - Reported changing pharmacies due to prescription management issues. Review of Systems - Cardiovascular: Denies chest pain, palpations, or shortness of breath. - Neurological: Denies dizziness or syncope. - Gastrointestinal: Denies heartburn, nausea, vomiting, or changes in bowel habits. - Genitourinary: Reports nocturia, waking 1-2 times per night to urinate. - Respiratory: Denies dyspnea or cough. - ENT: Denies difficulty swallowing or hearing issues. - General: Reports high blood pressure but no recent fevers. - Musculoskeletal: No joint pain reported. - Vision: Reports vision is fine but open to scheduling an eye examination. Physical Exam General: Cooperative, healthy appearing, comfortable, no acute distress and well developed Orientation: Patient oriented x3 Limitations: No limitations Head: Normal to inspection Ears: Hearing grossly normal bilaterally Nose: Normal external nose present Face and sinus: Normal facial exam Eyes: Appearance normal, both eyes and all related structures Neck: Normal visual inspection and Yes full ROM Respiratory: Normal respiratory effort and able to speak in complete sentences. Clear to auscultation bilaterally Cardiovascular: Regular rate and rhythm. Normal S1 and S2 GI: Normal to inspection. Soft to palpation and nontender Skin: No rashes or lesions noted Neuro: Patient oriented x3 Extremities: Normal to inspection Results - Labs: Total cholesterol at 332 mg/dL, LDL cholesterol at 209 mg/dL, triglycerides < 150 mg/dL. Normal blood counts, electrolytes, renal function, and liver function stable. - Previous diagnostic tests: Most recent colonoscopy in February 2021 showed tubular adenoma. Plan During the visit, I reviewed and updated the patient's management plan. The patient will resume atorvastatin to manage hypercholesterolemia and prevent the increased cardiovascular risk posed by elevated LDL cholesterol. I considered altering the lisinopril regimen to better manage hypertension. Emphasis was placed on medication adherence and lifestyle changes to achieve target cholesterol and healthy blood pressure levels. We'll monitor his hemoglobin A1c to assess diabetes control, given his history of impaired glucose tolerance. To address liver health, I advised moderation of alcohol intake. Given his benign prostatic hyperplasia and controlled urinary symptoms, no additional treatment changes were deemed necessary currently. I planned a colorectal screening for routine adenoma surveillance. The necessity for home blood pressure monitoring was discussed, supporting long-term management and medication adjustments. Patient was informed and verbally consented to the use of an ambient scribe for clinic note documentation during this visit. Discussion Notes I discussed with the patient the significantly elevated cholesterol levels and emphasized the importance of medication adherence in managing hypercholesterolemia and maintaining cardiovascular health. We reviewed the reasons for potential adjustments to hypertension management, specifically by discussing the alterable lisinopril dosage to effectively control blood pressure. The patient was educated on the risks associated with continued alcohol consumption, especially noting its potential impact on liver health and cholesterol management. Furthermore, we explored the significance of follow-up lab tests, including repeat cholesterol and hemoglobin A1c testing, to evaluate ongoing risk factors associated with his diabetic status and cardiovascular risk. To monitor hypertension management efficacy, home blood pressure monitoring strategies were proposed, with a follow-up consultation planned for three months from now to assess therapeutic response and adjust care as needed. I confirmed with him that no new symptoms or familial risks warranted immediate concern, but reemphasized the significance of routine health check-ups and screenings. Patient Instructions - Resume taking atorvastatin as prescribed for cholesterol management. - Stay consistent with hypertension medications, amlodipine and lisinopril. - Limit alcohol intake to reduce impact on liver and cholesterol levels. - Monitor blood pressure regularly at home and record readings. - Schedule a follow-up appointment in three months to check cholesterol levels and adjust treatment as needed. - Prepare for recommended screening colonoscopy next year. - Engage in a healthy lifestyle by adhering to prescribed medications, diet, and exercise. Orders: Orders Complete Blood Count Auto Diff 3 Months E78.00 - Pure hypercholesterolemia, unspecified Thyroid Stimulating Hormone 3 Months E78.00 - Pure hypercholesterolemia, unspecified Lipid Panel 3 Months E78.00 - Pure hypercholesterolemia, unspecified Comprehensive Met. Panel 3 Months E78.00 - Pure hypercholesterolemia, unspecified Free T4 (Free Thyroxine) 3 Months E78.00 - Pure hypercholesterolemia, unspecified Referrals Ophthalmology Referral H53.9 - Unspecified visual disturbance Medications: New lisinopril-hydrochlorothiazide 20-12.5 mg 1 tab PO BID 60 tabs 3RF I10 - Essential (primary) hypertension Discontinued lisinopril Discontinued Reason: Doctor's Order 40 mg PO DAILY 90 days 90 tabs 3RF I10 - Essential (primary) hypertension
--- OUTSIDE RECORDS SUMMARY | 2025-04-01 16:28 | XMS_ITS | Clinical Summary ---
Author Organization [facility] it Address [address] [place] [address] Care Team Providers Care Boilermaker Name Role Phone Name, Juan J MENSAH Primary Care Provider [phone] Surgical History Surgery Date Site/Laterality Comments OTHER SURGICAL HISTORY early 1999 PROCEDURE: ---- OTHER ----; COMMENT: left shoulder surgery Medical History Medical History Date Comments HTN (hypertension) 06/01/2012 DX:HTN (hyper tension) Historical Medical DX 06/01/2012 DX:Hyperli pidemia LDL goal < 130 Family History Medical History Relation Name Comments Arthritis Father Arthritis Mother Relation Name Status Comments Daughter Alive depression Father Alive gi malignancy Mother Alive Sister Alive anemia Social History Tobacco Use Types Packs/Day Years Used Date Smoking Tobacco: Never Alcohol Use Standard Drinks/Week Comments Not Asked 0 (1 standard drink = 0.6 oz pur e alcohol) Sex and Gender Information Value Date Recorded Sex Assigned at Not on file Legal Sex Male 9:43 AM EST Gender Identity Not on file Sexual Orientation Not on file Obstetrics History Plan of Treatment Health Maintenance Due Date Last Done Comments Pneumococcal Vaccine: 50+ Ye ars (1 of 1 - PCV) 2010 Zoster Vaccines (1 of 2) 2010 Cholesterol Screening (Lipid Panel) 09/27/2022 Colorectal Cancer Screening: Colonoscopy 09/27/2022 Depression Screening 09/27/2022 HIV Screening 09/27/2022 Hepatitis C Screening 09/27/2022 Social Influencers of Health Screening 09/27/2022 DTaP,Tdap,and Td Vaccines (2 - Td or Tdap) 08/09/2023 08/09/2013 Hypertension/CHF/CAD Annual BMP Blood Test 12/02/2023 COVID-19 Vaccine ( - 2023-2 5 season) 2024 Influenza Vaccine (Season Ended) 2025 08/09/20 13 RSV Immunization Adult Patie nts (1 - 1-dose 75+ series) 2035 HIB Vaccines Aged Out No longer eligi ble based on patient's age to complete this topic HPV Vaccines Aged Out No longer eligi ble based on patient's age to complete this topic Hepatitis A Vaccines Aged Out No long er eligible based on patient's age to complete this topic Hepatitis B Vaccines Aged Out No long er eligible based on patient's age to complete this topic IPV Vaccines Aged Out No longer eligi ble based on patient's age to complete this topic MMR Vaccines Aged Out No longer eligi ble based on patient's age to complete this topic Meningococcal ACWY Vaccine Aged Out N o longer eligible based on patient's age to complete this topic Meningococcal B Vaccine Aged Out No l onger eligible based on patient's age to complete this topic Pneumococcal Vaccine: Pediat rics (0 to 5 Years) and At-Risk Patients (6 to 64 Years) Aged Out No longer eligi ble based on patient's age to complete this topic RSV Immunization Patients Un felice 20 months Aged Out No longer eligible b ased on patient's age to complete this topic Varicella Vaccines Aged Out No longer eligible based on patient's age to complete this topic Care Teams Boilermaker Relationship Specialty Start Date End Date Name, MD Juan J [address], [place] PCP - General 07/01/14
== END 2025-04-01 15:33 | disposition home or self-care (01) ==
LOC: HO.HMCH 14:43
PROVIDERS: PCP Internal Medicine; Visit Provider Internal Medicine
DX: Z00.00 Encounter for general adult medical examination without abnormal findings (principal); R73.02 Impaired glucose tolerance (oral); I10 Essential (primary) hypertension; E78.00 Pure hypercholesterolemia, unspecified; R33.9 Retention of urine, unspecified; H53.9 Unspecified visual disturbance

== ENCOUNTER → 2025-04-01 14:42 | Outpatient (BNVA) | payer OTHER, SELFPAY | PROVIDERS: PCP Internal Medicine; Visit Provider Internal Medicine ==

== ENCOUNTER 2025-05-06 10:36 | Outpatient (AMB) | payer OTHER, SELFPAY ==
--- NOTE | 2025-05-06 10:39 | A.OFFPC_ITS ---
Vital Signs 05/06/25 10:40 Height 5 ft 2 in Weight 139 lb 6 oz BMI 25.5 BP 130/70 Blood Pressure Location Lt brachial Position Sitting Pulse 59 Pulse Source Pulse Oximeter Pulse Oximetry (%) 97 Oxygen Delivery Method Room Air Intake Visit Reasons: ED F/U [facility] 05/01 LBP/ Med Review Certified Surgical Tech/First Assistant Required: Yes Certified Surgical Tech/First Assistant Language: Salvadorean Accompanied by: Self / Same As Patient Allergies No Known Allergies Allergy (Verified 05/06/25 10:39) Tobacco use date assessed: 05/06/25 Fall risk assessment: No Falls in past year Last assessed Fall Risk: 05/06/25 Dental Screening Dental Screen Date: 05/06/25 HPI ED F/U [facility] 05/01 LBP/ Med Review HPI Details Patient is a 64-year-old Salvadorean-speaking male here today for [facility] ER follow-up visit. The patient is a 64-year-old male presenting with syncope and hypertension management. The patient has a history of essential hypertension, for which he is currently taking lisinopril hydrochlorothiazide. Recently, he was prescribed this medication due to elevated blood pressure readings. He reports that his blood pressure was measured at 130/70 mmHg during this visit. The patient experienced a syncopal episode, which he attributes to dehydration and possibly the medication. He recalls feeling cold and sweating profusely b efore passing out in the bathroom. 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 The patient also reports a history of hemorrhoids, which were identified during a colonoscopy in 2020. He experienced rectal bleeding recently, which he suspects is due to constipation and hemorrhoids. [facility] Medical History (Updated 05/06/25 @ 10:59 by Gustavo Antonio PA-C) Frequency of micturition Frequency of micturition Finger laceration Chest pain Visit for suture removal Tubular adenoma of colon COVID-19 vaccine series completed Hyperlipidemia Hypertension Surgical History Hx of colonoscopy History of shoulder surgery Family History Father Stomach cancer Maternal Grandmother Myocardial infarct Maternal Aunt Myocardial infarct Brother Stomach cancer Social History Housing: House Are you a primary manager of care to a significant other at home: No Do you presently have visiting nurse or other home services: No Alcohol intake: current Comment: 2 days/ week 4 drinks one time, Patient Tobacco Use Status: Never used Tobacco e-Cigarette/Vaping Use: Never Used Second Hand Smoke Exposure: No service: No Current occupational status: employed Cognitive needs: No Hearing needs: No Vision needs: Yes Questionnaire Thrive Questionnaire Date Thrive assessed: 05/06/25 I am a: Patient What is your living situation today?: I have a steady place to live Within the past 12 months, did the food you bought not last and you didn't have the money to get more?: Never true Within the past 12 months, did you worry whether your food would run out before you got money to buy more?: Never true Do you have trouble paying for medicines?: No Do you have trouble getting transportation to medical appointments?: No Do you have trouble paying your heating and electricity bill?: No Do you have trouble taking care of your child, family member or friend?: No Do you have trouble with day-to-day activities such as bathing, preparing meals, shopping, managing finances, etc.?: No Are you currently unemployed and looking for a job?: No Are you interested in more education?: No Please select the resources that you would like help with: None Currently or been in a relationship where the following occur: No concerns reported THRIVE Score: 0 FRANCISCA-7 AMB Questionnaire FRANCISCA-7 Date FRANCISCA - 7 assessed: 05/06/25 Source: Developed by Drs. Nader Dotson, Gwendolyn Varghese, Martín Campos and colleagues, with an educational purnima from [employer]. Review of Systems Const Denies headache(s) Eyes Denies loss of vision ENT Denies vertigo, Denies dizziness, Denies headache(s) and Denies sore throat Card Denies chest pain, Denies leg edema and Denies lightheadedness Resp Denies cough, Denies hemoptysis and Denies wheezing GI Denies abdominal pain, Denies melena, Denies constipation, Denies diarrhea and Denies vomiting Denies dysuria, Denies urinary frequency and Denies urinary urgency Musc Denies arthralgias, Denies joint swelling, Denies numbness and Denies tingling Neuro Denies Abnormal speech present, Denies behavioral changes, Denies vertigo, Denies dizziness, Denies headache(s), Denies loss of vision, Denies memory loss, Denies numbness and Denies tingling Psych Denies anxiety, Denies behavioral changes, Denies depression, Denies memory loss and Denies panic attacks Galen/Lymph Denies easy bleeding and Denies easy bruising Aller/Immun Denies wheezing Physical exam (Primary Care) Vital Signs: Last Vital Signs Pulse 59 05/06/25 10:40 BP 130/70 05/06/25 10:40 Pulse Ox 97 05/06/25 10:40 Oxygen Delivery Method Room Air 05/06/25 10:40 BMI result Body Mass Index 25.5 Tobacco/Smoking Status: Tobacco use Status Tobacco use date assessed 05/06/25 05/06/25 10:49 Patient Tobacco Use Status Never used Tobacco 05/06/25 10:49 e-Cigarette/Vaping Use Never Used 05/06/25 10:49 Thrive Assessment: Date of Thrive Assessment Date Thrive assessed 05/06/25 05/06/25 10:49 Currently or been in a relationship where the following occur: No concerns reported Const General: healthy appearing, no acute distress, alert and awake Nutritional Appearance: well nourished Orientation/consciousness: oriented to person, oriented to place and oriented to time HENMT Ears: TM's normal bilaterally General nose exam: Normal nasal mucous membranes and turbinates present Eyes Conjunctivae: conjunctivae normal Sclerae: sclerae normal Pupils: Equal, round and reactive pupils present Neck Neck: Yes no lymphadenopathy and Yes no JVD Thyroid: Thyroid normal Carotids: no bruits Resp Effort & Inspection: normal respiratory effort and not tachypneic Auscultation: no crackles, no rales, no rhonchi and no wheezes Cardio Rate: regular rate Rhythm: regular rhythm Heart sounds: no murmurs and normal S1 and S2 GI Palpation (GI): Soft to palpation, nontender, no hepatomegaly and no splenomegaly Auscultation: normal bowel sounds Skin General skin exam: no rashes or lesions noted and dry skin Neuro General: oriented to person, oriented to place and oriented to time Cranial nerves: Yes Equal, round and reactive pupils present Speech: No Abnormal speech present Gait exam (Neuro): Normal gait present Motor exam (neuro): no tremor noted Extrem Right upper extremity: full ROM Left upper extremity: full ROM Right lower extremity: full ROM; no edema Left lower extremity: full ROM; no edema Psych Mental Status: mental status grossly normal Speech and movement: Normal speech and movement present Affect: normal affect Attitude: cooperative Thought process: Normal thought process present Coding Level of Care Code Est Pt Level 3 (63397) Diagnoses Heat syncope, subsequent encounter T67.1XXD Encounter type: subsequent encounter Syncope type: heat syncope Essential hypertension I10 Hypertension type: essential hypertension Assessment & Plan Assessment & Plan (1) Syncope: Code(s): R55 - Syncope and collapse Category: Medical Qualifiers: Encounter type: subsequent encounter Syncope type: heat syncope Qualified Code(s): T67.1XXD - Heat syncope, subsequent encounter Plan: Patient's seem to have had a syncopal episode while using the bathroom. Likely vasovagal syncope. Recently had his lisinopril hydrochlorothiazide increased due to high blood pressure readings. Blood pressure today in office acceptable today in office.. The syncopal episode is suspected to be related to dehydration and possibly medication effects; the patient is advised to stay hydrated and monitor symptoms. (2) Hypertension: Code(s): I10 - Essential (primary) hypertension Category: Medical Qualifiers: Hypertension type: essential hypertension Qualified Code(s): I10 - Essential (primary) hypertension Plan: As above, Advised to continue current dose of lisinopril hydrochlorothiazide and staying well hydrated. Patient's blood pressure acceptable today in office. Goal blood pressure to remain below 140/90
[2025-05-06 10:40] VITALS: BP 130/70; PULSE 59; O2SAT 97; BMI 25.5
--- OUTSIDE RECORDS SUMMARY | 2025-05-06 11:36 | XMS_ITS | Clinical Summary ---
Author Organization [facility] it Address [address] [place] [address] Care Team Providers Care Wearing Apparel Presser Name Role Phone Name, Juan J MENSAH Primary Care Provider [phone] Surgical History Surgery Date Site/Laterality Comments OTHER [...] Annual BMP Blood Test 12/02/2023 COVID-19 Vaccine (1 2023-2 5 season) 2024 Influenza Vaccine (#1) 2025 08/09/2013 RSV Immunization Adult Patie nts (1 - [...] age to complete this topic Care Teams Wearing Apparel Presser Relationship Specialty Start Date End Date Name, MD Juan J [address] [place] [address] PCP - General 07/01/14
== END 2025-05-06 11:07 | disposition home or self-care (01) ==
LOC: HO.HMCH 10:38
PROVIDERS: PCP Internal Medicine; Visit Provider Physician Assistant
DX: I10 Essential (primary) hypertension (principal); T67.1XXD Heat syncope, subsequent encounter

== ENCOUNTER 2025-07-16 06:40 | Outpatient (REF) | payer OTHER, SELFPAY ==
--- OUTSIDE RECORDS SUMMARY | 2025-07-16 06:44 | XMS_ITS | Clinical Summary ---
Author Organization [facility] it Address [address] [place] [address] Care Team Providers Care Sustainability Manager Name Role Phone Name, Juan J MENSAH Primary Care Provider [phone] Surgical History Surgery Date Site/Laterality Comments OTHER [...] 2010 Zoster Vaccines (1 of 2) 2010 DTaP,Tdap,and Td Vaccines (2 - Td or Tdap) 08/09/2023 08/09/2013 Depression Screening 10/30/2024 COVID-19 Vaccine (1 - 2023-2 5 season) 2025 Influenza Vaccine (#1) 2025 08/09/2013 RSV Immunization [...] age to complete this topic Care Teams Sustainability Manager Relationship Specialty Start Date End Date Name, MD Juan J [address] [place] [address] PCP - General 07/01/14
[2025-07-16 07:07] LABS: MANUAL DIFF FLAG NO
[2025-07-16 07:37] LABS: Hematocrit 38.0 % (42.0-52.0); Hemoglobin 13.1 g/dl (14.0-18.0); Imm Gran Abs Auto 0.02 X10*3/uL (0.00-0.03); Imm Gran Pct Auto 0.4 % (0.0-0.4); Lymphocytes Absolute Auto 1.3 X10*3/uL (1.2-4.9); Mean Corpuscular HGB Conc 34.5 g/dl (31.0-36.0); Mean Corpuscular Hemoglobin 29.1 pg (27.0-33.0); Mean Corpuscular Volume 84.4 fL (80.0-98.0); NRBC Abs Auto 0.000 X10*3/uL (0.0-0.012); NRBC Pct Auto 0.0 /100WBC (0.0-0.2); Platelet Count 267 X10*3/uL (160-400); Red Blood Count 4.50 X10*6/uL (4.60-5.80); White Blood Count 5.4 X10*3/uL (4.8-10.8)
[2025-07-16 08:12] LABS: Alanine Aminotransferase 25 U/L (0-40); Albumin Level 4.2 g/dL (3.5-5.0); Alkaline Phosphatase 46 U/L (39-117); Anion Gap 9 (12-20); Aspartate Amino Transferase 24 U/L (5-37); Blood Urea Nitrogen 13 mg/dL (9-16); Calcium 8.8 mg/dL (8.4-10.2); Carbon Dioxide 28 mmol/L (22-29); Chloride 106 mmol/L (96-108); Cholesterol 241 mg/dL (<200); Estimated Glomerular Filt Rate > 60; HDL Cholesterol 79 mg/dL (>40); Potassium 3.9 mmol/L (3.3-5.1); Sodium 139 mmol/L (135-145); Total Protein 7.4 g/dL (6.5-8.0); Triglycerides 64 mg/dL (<150)
[2025-07-16 08:22] LABS: Free T4 (Free Thyroxine) 0.89 ng/dL (0.71-1.85); Thyroid Stimulating Hormone 2.05 uIU/mL (0.32-4.0)
== END 2025-07-16 06:41 | disposition home or self-care (01) ==
LOC: HO.LAB 06:40
PROVIDERS: PCP Internal Medicine; Visit Provider Internal Medicine
DX: E78.00 Pure hypercholesterolemia, unspecified (principal)
CPT/HCPCS: 36415; 80053; 80061; 84439; 84443; 85025

== ENCOUNTER 2025-07-21 14:38 | Outpatient (AMB) | payer OTHER, SELFPAY ==
--- NOTE | 2025-07-21 15:51 | MHC.PC.OV ---
Vital Signs 07/21/25 15:52 Height 5 ft 2 in Weight 140 lb BMI 25.6 BP 128/78 Blood Pressure Location Lt brachial Position Sitting Pulse 65 Pulse Source Pulse Oximeter Temp 97.3 F Temp Source Temporal Artery Scan Pulse Oximetry (%) 96 Oxygen Delivery Method Room Air Intake Visit Reasons: HTN and cholesterol Intake Note: Patient is here to follow up on HTN, Cholesterol. De Alcholizer Required: No Carpet Journeyman: Not Required per policy Accompanied by: Self / Same As Patient Allergies No Known Allergies Allergy (Verified 07/21/25 15:52) Tobacco use date assessed: 07/21/25 Fall risk assessment: No Falls in past year Last assessed Fall Risk: 07/21/25 Dental Screening Dental Screen Date: 05/06/25 [facility] Medical History (Updated 05/06/25 @ 10:59 by Gustavo Antonio PA-C) Frequency of micturition Frequency of micturition Finger laceration Chest pain Visit for suture removal Tubular adenoma of colon COVID-19 vaccine series completed Hyperlipidemia Hypertension Surgical History Hx of colonoscopy History of shoulder surgery Family History Father Stomach cancer Maternal Grandmother Myocardial infarct Maternal Aunt Myocardial infarct Brother Stomach cancer Social History Housing: House Are you a primary acute care clinical nurse specialist to a significant other at home: No Do you presently have visiting nurse or other home services: No Alcohol intake: current Comment: 2 days/ week 4 drinks one time, Patient Tobacco Use Status: Never used Tobacco e-Cigarette/Vaping Use: Never Used Second Hand Smoke Exposure: No service: No Current occupational status: employed Cognitive needs: No Hearing needs: No Vision needs: Yes Questionnaire PHQ-9 Over the last 2 weeks, how often have you been bothered by any of the following problems? 1. Little interest or pleasure in doing things: nearly every day 2. Feeling down, depressed, or hopeless: not at all 3. Trouble falling or staying asleep, or sleeping too much: nearly every day 4. Feeling tired or having little energy: nearly every day 5. Poor appetite or overeating: not at all 6. Feeling bad about yourself - or that you are a failure or have let yourself or your family down: not at all 7. Trouble concentrating on things, such as reading the newspaper or watching television: nearly every day 8. Moving or speaking so slowly that other people could have noticed. Or the opposite - being so fidgety or restless that you have been moving around a lot more than usual: several days 9. Thoughts that you would be better off or of hurting yourself in some way: not at all Total score: 13 Depression Screening Interpretation: Positive Depression Screening Done: Yes Source: Developed by Drs. Nader Dotson, Gwendolyn Varghese, Martín Campos and colleagues, with an educational purnima from [employer]. Thrive Questionnaire Date Thrive assessed: 05/06/25 I am a: Patient What is your living situation today?: I have a steady place to live Within the past 12 months, did the food you bought not last and you didn't have the money to get more?: Never true Within the past 12 months, did you worry whether your food would run out before you got money to buy more?: Never true Do you have trouble paying for medicines?: No Do you have trouble getting transportation to medical appointments?: No Do you have trouble paying your heating and electricity bill?: No Do you have trouble taking care of your child, family member or friend?: No Do you have trouble with day-to-day activities such as bathing, preparing meals, shopping, managing finances, etc.?: No Are you currently unemployed and looking for a job?: No Are you interested in more education?: No Please select the resources that you would like help with: None Currently or been in a relationship where the following occur: No concerns reported THRIVE Score: 0 FRANCISCA-7 AMB Questionnaire FRANCISCA-7 Date FRANCISCA - 7 assessed: 05/06/25 Source: Developed by Drs. Nader Dotson, Gwendolyn Varghese, Martín Campos and colleagues, with an educational purnima from [employer]. Physical exam (Primary Care) Vital Signs: Last Vital Signs Temp 97.3 F 07/21/25 15:52 Pulse 65 07/21/25 15:52 BP 128/78 07/21/25 15:52 Pulse Ox 96 07/21/25 15:52 Oxygen Delivery Method Room Air 07/21/25 15:52 BMI result Body Mass Index 25.6 Tobacco/Smoking Status: Tobacco use Status Tobacco use date assessed 07/21/25 07/21/25 15:56 Patient Tobacco Use Status Never used Tobacco 07/21/25 15:56 e-Cigarette/Vaping Use Never Used 07/21/25 15:56 PHQ-9: PHQ-9 Score PHQ-9: Total score 13 07/21/25 16:18 Depression Screening Interpretation: Positive Thrive Assessment: Date of Thrive Assessment Date Thrive assessed 05/06/25 07/21/25 15:56 Currently or been in a relationship where the following occur: No concerns reported Const General: alert; No acute distress Eyes Conjunctivae: conjunctivae normal Resp Auscultation: clear to auscultation bilaterally Cardio Rate: regular rate Rhythm: regular rhythm GI Inspection: Yes normal to inspection Extrem General: Yes normal to inspection and No edema Coding Level of Care Code Est Pt Level 4 (60194) Complex EM visit Add On [id number] Diagnoses Essential hypertension I10 Hypertension type: essential hypertension Pure hypercholesterolemia E78.00 Hyperlipidemia type: pure hypercholesterolemia Impaired glucose tolerance R73.02 Anemia D64.9 Assessment & Plan Assessment & Plan (1) Hypertension: Code(s): I10 - Essential (primary) hypertension Category: Medical Qualifiers: Hypertension type: essential hypertension Qualified Code(s): I10 - Essential (primary) hypertension Plan: Continue with blood pressure medication. Decrease salt intake and exercise presently on amlodipine 10 mg once a day lisinopril hydrochlorothiazide 2012.5 twice a day (2) Hyperlipidemia: Code(s): E78.5 - Hyperlipidemia, unspecified Category: Medical Qualifiers: Hyperlipidemia type: pure hypercholesterolemia Qualified Code(s): E78.00 - Pure hypercholesterolemia, unspecified Plan: Avoid fried foods, chicken skin, eggs, butter margarine, pastries and meat. Be it pork or beef they have a lot of cholesterol LDL goal of less than 130 and triglyceride of less than 150 on atorvastatin 20 mg once a day (3) Impaired glucose tolerance: Code(s): R73.02 - Impaired glucose tolerance (oral) Category: Medical Plan: Decrease the amount of carbohydrate intake, pasta, bread, rice and potatoes are all sugar and that is aside from all the sweet stuff, remember that fruits are good but they are Sweet also. (4) Anemia: Code(s): D64.9 - Anemia, unspecified Category: Medical Plan: Stable continue to monitor Plan History of Present Illness The patient is a 64-year-old male presenting for follow-up of chronic conditions including hypertension, hypercholesterolemia, and impaired glucose tolerance. The patient has a history of hypertension and is currently on amlodipine 10 mg once daily and lisinopril-hydrochlorothiazide 20/12.5 mg twice daily. His blood pressure management plan includes these medications, and he is advised to continue monitoring his blood pressure regularly. The patient also has hypercholesterolemia, with an LDL cholesterol level of 150 mg/dL, which is above the target goal of less than 130 mg/dL. He is currently taking atorvastatin 20 mg once daily to manage his cholesterol levels. The patient has a history of tubular adenoma, with the last colonoscopy performed in February 2021. There is no indication of recent complications or follow-up procedures related to this condition. The patient has impaired glucose tolerance, with blood sugar levels noted to be mildly elevated at 100/103 mg/dL. He is advised to continue monitoring his blood glucose levels to prevent progression to diabetes. Recent blood work indicated mild anemia, which is not a new finding for the patient. Electrolytes are stable, and renal function remains within normal limits. Health Maintenance - Colonoscopy last performed in February 2021 for tubular adenoma surveillance Social History Review of Systems Physical Exam Results - Labs: Mild anemia noted, blood sugar mildly elevated at 100/103 mg/dL, LDL cholesterol at 150 mg/dL - Electrolytes: Normal - Renal function: Stable Plan Patient was informed and verbally consented to the use of an ambient scribe for clinic note documentation during this visit. 1. Hypertension The patient is currently on amlodipine 10 mg once daily and lisinopril-hydrochlorothiazide 20/12.5 mg twice daily for hypertension management. He is advised to continue monitoring his blood pressure regularly to ensure effective control. 2. Hypercholesterolemia The patient's LDL cholesterol level is 150 mg/dL, above the target goal of less than 130 mg/dL. He is on atorvastatin 20 mg once daily to manage his cholesterol levels. 3. Impaired Glucose Tolerance The patient has impaired glucose tolerance with blood sugar levels noted to be mildly elevated at 100/103 mg/dL. He is advised to continue monitoring his blood glucose levels to prevent progression to diabetes. 4. Mild Anemia Recent blood work indicated mild anemia, which is not a new finding for the patient. Further monitoring and evaluation may be necessary to determine the underlying cause. Discussion Notes Patient Instructions Orders: Orders Thyroid Stimulating Hormone 6 Months I10 - Essential (primary) hypertension Free T4 (Free Thyroxine) 6 Months I10 - Essential (primary) hypertension Vitamin B12 and Folate 6 Months I10 - Essential (primary) hypertension Ferritin 6 Months I10 - Essential (primary) hypertension Hemoglobin A1c 6 Months I10 - Essential (primary) hypertension Reticulocyte Count 6 Months I10 - Essential (primary) hypertension Prostate Specific Antigen Scr 6 Months I10 - Essential (primary) hypertension Complete Blood Count Auto Diff 6 Months I10 - Essential (primary) hypertension Comprehensive Met. Panel 6 Months I10 - Essential (primary) hypertension Lipid Panel 6 Months E78.00 - Pure hypercholesterolemia, unspecified, I10 - Essential (primary) hypertension IRON PROFILE 6 Months I10 - Essential (primary) hypertension
[2025-07-21 15:52] VITALS: BP 128/78; PULSE 65; TEMP 36.3; O2SAT 96; BMI 25.6
== END 2025-07-21 16:33 | disposition home or self-care (01) ==
LOC: HO.HMCH 14:39
PROVIDERS: PCP Internal Medicine; Visit Provider Internal Medicine
DX: I10 Essential (primary) hypertension (principal); E78.00 Pure hypercholesterolemia, unspecified; R73.02 Impaired glucose tolerance (oral); D64.9 Anemia, unspecified